=== PATIENT | female | born 1980 | race Caucasian/White ===

== ENCOUNTER 2017-02-21 17:08 | Inpatient (IN) | payer MEDICAID ==
[2017-02-21] MEDS ORDERED: Ondansetron 4 MG/2 ML SDV IVPUSH ONE (17:49)
[2017-02-21] MEDS ORDERED: HYDROmorphone 0.5 MG/0.5 ML Syringe IVPUSH ONE ×4 (17:49→23:18)
--- NOTE | 2017-02-21 17:52 | EDM.PDOC ---
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 Problem Stated Complaint: OVARIAN CYST Time Seen by Provider: 02/21/17 18:50 Source of Information: Reports: Patient History Limitations: Reports: No Limitations Right Pelvic Pain Score (Numeric/FACES): 8 - Related Data Allergies Allergy/AdvReac Type Severity Reaction Status Date / Time codeine Allergy Unknown Hives Verified 02/21/17 17:30 erythromycin base Allergy Unknown Cannot Verified 02/21/17 17:30 [Erythromycin Base] Remember Penicillins Allergy Unknown Cannot Verified 02/21/17 17:30 Remember Sulfa (Sulfonamide Allergy Unknown Blisters Verified 02/21/17 17:30 Antibiotics) Home Meds: Home Meds Acetaminophen [Tylenol Extra Strength] 1,000 mg PO Q6H PRN 03/30/13 [History] Biotin 2,500 mcg PO DAILY 03/30/13 [History] Cholecalciferol (Vitamin D3) [Vitamin D3] 1,000 unit PO BID 03/30/13 [History] Cyanocobalamin (Vitamin B-12) [Vitamin B-12] 1,000 mcg IM Q30M 03/30/13 [History ] Cyanocobalamin (Vitamin B-12) [Vitamin B-12] 2 tab PO DAILY 03/30/13 [History] Ferrous Fumarate [Iron] 325 mg PO TID 03/30/13 [History] Multivitamin [Multivitamins] 2 each PO DAILY 03/30/13 [History] Omeprazole 20 mg PO BIDAC 03/30/13 [History] Vitamin B Complex [Vitamin B-100 Complex] 2 tab PO DAILY 03/30/13 [History] Calcium Carbonate [Calcium] 600 mg PO DAILY 08/23/13 [History] Baclofen 10 mg PO BID PRN 12/01/13 [History] Sucralfate [Carafate] 0.5 gm PO QIDACANDBED #30 dose 09/27/15 [Rx] Ibuprofen 400 mg PO Q4H PRN 12/03/15 [History] Past Medical History Gastrointestinal History: Reports: Bowel Obstruction, Cholelithiasis, GERD Other Gastrointestinal History: chronic abdinal pain 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: Musculoskeletal History: Reports: Back Pain, Chronic Neurological History: Reports: Concussion, Migraines Psychiatric History: Reports: ADD, Anxiety, Depression Hematologic History: Reports: Anemia, B12 Deficiency, Iron Deficiency - Infectious Disease History Infectious Disease History: Reports: Chicken Pox - Past Surgical History HEENT Surgical History: Reports: Tonsillectomy GI Surgical History: Reports: Bariatric Procedure, Cholecystectomy, Colon, EGD, Small Bowel Female Surgical History: Reports: Section, Tubal Ligation Social & Family History - Family History Cardiac: Reports: Heart Failure, High Cholesterol, Hypertension Respiratory: Reports: 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) Other Respiratory Family Hisory: Emphasema Musculoskeletal: Reports: Arthritis Neurological: Reports: Alzheimers Disease Psychiatric: Reports: None Endocrine/Metabolic: Reports: Diabetes, Type I, Obesity/MBI 30+ Oncologic: Reports: Colon, Skin - Tobacco Use Smoking Status *Q: Current Every Day Smoker Years of Tobacco use: 2 Packs/Tins Daily: 1 Tobacco Use Comment: Had quit for 14 years Second Hand Smoke Exposure: Yes - Caffeine Use Caffeine Use: Reports: Coffee, Energy Drinks, Soda, Tea - Alcohol Use Days Per Week of Alcohol Use: 4 Number of Drinks Per Day: 2 Total Drinks Per Week: 8 - Recreational Drug Use Recreational Drug Use: No Course - Vital Signs Last Recorded V/S: Last Vital Signs Temp 37.0 C 02/21/17 23:03 Pulse 56 L 02/21/17 23:03 Resp 16 02/21/17 22:29 BP 115/45 L 02/21/17 23:03 Pulse Ox 97 02/21/17 22:29 - Orders/Labs/Meds Orders: Active Orders 24 hr Category Date Time Status Abdomen Pelvis w Cont [CT] Stat Exams 02/21/17 19:40 Taken Pelvis Non OB Comp [US] Stat Exams 02/21/17 17:50 Taken Transvaginal Non OB [US] Stat Exams 02/21/17 17:50 Taken CHLAMYDIA,AND GC BY APTIMA Routine Lab 02/21/17 19:42 Received Sodium Chloride 0.9% [Normal Saline] 1,000 ml Med 02/21/17 18:00 Active IV ASDIRECTED Sodium Chloride 0.9% [Saline Flush] Med 02/21/17 19:58 Active 10 ml FLUSH ONETIME PRN cefOXitin [Mefoxin] 2 gm Med 02/21/17 23:06 Active Sodium Chloride 0.9% [Normal Saline] 50 ml IV ONETIME Medication Orders Sodium Chloride (Normal Saline) 1,000 mls @ 999 mls/hr IV ASDIRECTED JESS Last Admin: 02/21/17 17:51 Dose: 999 mls/hr Cefoxitin Sodium 2 gm/ Sodium (Chloride) 50 mls @ 100 mls/hr IV ONETIME ONE Stop: 02/21/17 23:35 Sodium Chloride (Saline Flush) 10 ml FLUSH ONETIME PRN PRN Reason: PER RADIOLOGY PROTOCOL Last Admin: 02/21/17 20:44 Dose: 10 ml Labs: Laboratory Tests 02/21/17 02/21/17 02/21/17 Range/Units 17:58 17:58 17:58 WBC 12.1 H (4.5-11.0) K/uL RBC 3.87 (3.30-5.50) M/uL Hgb 11.5 L D (12.0-15.0) g/dL Hct 34.0 L (36.0-48.0) % MCV 88 (80-98) fL MCH 30 (27-31) pg MCHC 34 (32-36) % Plt Count 350 (150-400) K/uL Neut % (Auto) 79 H (36-66) % Lymph % (Auto) 10 L (24-44) % [place] % (Auto) 11 H (2-6) % Eos % (Auto) 1 L (2-4) % Baso % (Auto) 0 (0-1) % Sodium 136 L (140-148) mmol/L Potassium 4.0 (3.6-5.2) mmol/L Chloride 102 (100-108) mmol/L Carbon Dioxide 27 (21-32) mmol/L Anion Gap 11.0 (5.0-14.0) mmol/L BUN 14 (7-18) mg/dL Creatinine 0.9 (0.6-1.0) mg/dL Est Cr Clr Drug Dosing 64.58 mL/min Estimated GFR (MDRD) > 60 (>60) Glucose 88 (74-106) mg/dL Calcium 8.4 L (8.5-10.1) mg/dL Total Bilirubin 0.3 D (0.2-1.0) mg/dL AST 15 (15-37) U/L ALT 22 (12-78) U/L Alkaline Phosphatase 72 (46-116) U/L C-Reactive Protein 18.89 H (0.0-0.3) mg/dL Total Protein 6.5 (6.4-8.2) g/dL Albumin 2.8 L (3.4-5.0) g/dL Globulin 3.7 H (2.3-3.5) g/dL Albumin/Globulin Ratio 0.8 L (1.2-2.2) Urine Color Urine Appearance Urine pH (4.5-8.0) Ur Specific [place] (1.008-1.030) Urine Protein (NEGATIVE) mg/dL Urine Glucose (UA) (NEGATIVE) mg/dL Urine Ketones (NEGATIVE) mg/dL Urine Occult Blood (NEGATIVE) Urine Nitrite (NEGATIVE) Urine Bilirubin (NEGATIVE) Urine Urobilinogen (NORMAL) mg/dL Ur Leukocyte Esterase (NEGATIVE) Urine RBC (0-5) Urine WBC (0-5) Ur Epithelial Cells Amorphous Sediment Urine Bacteria Urine Mucus Urine Other Urine HCG, Qual 02/21/17 02/21/17 Range/Units 19:25 19:25 WBC (4.5-11.0) K/uL RBC (3.30-5.50) M/uL Hgb (12.0-15.0) g/dL Hct (36.0-48.0) % MCV (80-98) fL MCH (27-31) pg MCHC (32-36) % Plt Count (150-400) K/uL Neut % (Auto) (36-66) % Lymph % (Auto) (24-44) % [place] % (Auto) (2-6) % Eos % (Auto) (2-4) % Baso % (Auto) (0-1) % Sodium (140-148) mmol/L Potassium (3.6-5.2) mmol/L Chloride (100-108) mmol/L Carbon Dioxide (21-32) mmol/L Anion Gap (5.0-14.0) mmol/L BUN (7-18) mg/dL Creatinine (0.6-1.0) mg/dL Est Cr Clr Drug Dosing mL/min Estimated GFR (MDRD) (>60) Glucose (74-106) mg/dL Calcium (8.5-10.1) mg/dL Total Bilirubin (0.2-1.0) mg/dL AST (15-37) U/L ALT (12-78) U/L Alkaline Phosphatase (46-116) U/L C-Reactive Protein (0.0-0.3) mg/dL Total Protein (6.4-8.2) g/dL Albumin (3.4-5.0) g/dL Globulin (2.3-3.5) g/dL Albumin/Globulin Ratio (1.2-2.2) Urine Color Yellow Urine Appearance Clear Urine pH 6.0 (4.5-8.0) Ur Specific [place] 1.025 (1.008-1.030) Urine Protein Negative (NEGATIVE) mg/dL Urine Glucose (UA) Normal (NEGATIVE) mg/dL Urine Ketones 15 H (NEGATIVE) mg/dL Urine Occult Blood Moderate (NEGATIVE) Urine Nitrite Negative (NEGATIVE) Urine Bilirubin Small (NEGATIVE) Urine Urobilinogen 8 (NORMAL) mg/dL Ur Leukocyte Esterase Negative (NEGATIVE) Urine RBC 5-10 H (0-5) Urine WBC 0-5 (0-5) Ur Epithelial Cells Moderate Amorphous Sediment Not seen Urine Bacteria Few Urine Mucus Numerous Urine Other Urine HCG, Qual Negative Meds: Medications Generic Name Dose Route Start Last Admin Trade Name Freq PRN Reason Stop Dose Admin Sodium Chloride 1,000 mls @ 999 mls/hr 02/21/17 18:00 02/21/17 17:51 Normal Saline IV 999 mls/hr ASDIRECTED JESS Administration Cefoxitin Sodium 2 gm/ Sodium 50 mls @ 100 mls/hr 02/21/17 23:06 Chloride IV 02/21/17 23:35 ONETIME ONE Sodium Chloride 10 ml 02/21/17 19:58 02/21/17 20:44 Saline Flush FLUSH 10 ml ONETIME PRN Administration PER RADIOLOGY PROTOCOL Discontinued Medications Generic Name Dose Route Start Last Admin Trade Name Freq PRN Reason Stop Dose Admin Doxycycline Hyclate 100 mg 02/21/17 23:06 Vibramycin PO 02/21/17 23:07 ONETIME ONE Hydromorphone HCl 0.5 mg 02/21/17 17:49 02/21/17 18:00 Dilaudid IVPUSH 02/21/17 17:50 0.5 mg ONETIME ONE Administration Hydromorphone HCl 0.5 mg 02/21/17 18:48 02/21/17 18:59 Dilaudid IVPUSH 02/21/17 18:49 0.5 mg ONETIME ONE Administration Hydromorphone HCl 0.5 mg 02/21/17 20:14 02/21/17 20:33 Dilaudid IVPUSH 02/21/17 20:15 0.5 mg ONETIME ONE Administration Sodium Chloride 70 mls @ 3 mls/sec 02/21/17 19:58 02/21/17 20:44 Normal Saline IV 02/21/17 19:59 3 mls/sec ONETIME ONE Administration Iopamidol 82 ml 02/21/17 19:58 02/21/17 20:44 Isovue-300 (61%) IV 100 ml . DIRECTED PRN Administration RADIOLOGY EXAM Lorazepam 0.5 mg 02/21/17 18:48 02/21/17 19:02 Ativan IVPUSH 02/21/17 18:49 0.5 mg ONETIME ONE Administration Ondansetron HCl 4 mg 02/21/17 17:49 02/21/17 17:58 Zofran IVPUSH 02/21/17 17:50 4 mg ONETIME ONE Administration Departure - Departure Disposition: Admitted As Inpatient 66 Clinical Impression: Parovarian cyst, Cervicitis - Discharge Information Referrals: Maikol Way MD [Primary Care Provider] - - My Orders Last 24 Hours: My Active Orders 02/21/17 19:40 Abdomen Pelvis w Cont [CT] Stat 02/21/17 19:42 CHLAMYDIA,AND GC BY APTIMA Routine 02/21/17 19:58 Sodium Chloride 0.9% [Saline Flush] 10 ml FLUSH ONETIME PRN 02/21/17 23:06 cefOXitin [Mefoxin] 2 gm Sodium Chloride 0.9% [Normal Saline] 50 ml IV ONETIME - Assessment/Plan Last 24 Hours: My Active Orders 02/21/17 19:40 Abdomen Pelvis w Cont [CT] Stat 02/21/17 19:42 CHLAMYDIA,AND GC BY APTIMA Routine 02/21/17 19:58 Sodium Chloride 0.9% [Saline Flush] 10 ml FLUSH ONETIME PRN 02/21/17 23:06 cefOXitin [Mefoxin] 2 gm Sodium Chloride 0.9% [Normal Saline] 50 ml IV ONETIME <Jayden Tomas - Last Filed: 02/21/17 23:18> ED HPI GENERAL MEDICAL PROBLEM - General Source of Information: Reports: Patient, RN Notes Reviewed History Limitations: Reports: No Limitations - History of Present Illness INITIAL COMMENTS - FREE TEXT/NARRATIVE: Initially briefly assessed and orders written by Dr. Lo then transferred to my care 18.50 Brought here by a friend Chief complaint Right lower quadrant abdominal pain History of present illness 37-year-old female, with history of ovarian cysts and tubal ligation, started developing some cramping pain right lower quadrant a few weeks ago. It was intermittent but suddenly became worse 2 days ago kept her awake last night was quite severe. Nausea but no vomiting Worse with movement and walking very sharp and steady Seen the clinic and transferred here because of her intense pain. Very restless on arrival so she was given pain medication. Ultrasound has been completed dentist shows some free fluid in the uterus in the pelvis, small amount, no cysts and no swelling of the adnexa or ovaries, no visualized cysts. Last menstrual period was 2-1/2 weeks ago just before the pain started 1 sexual partner, has been with him for a year ED ROS GENERAL - Review of Systems Review Of Systems: See Below Constitutional: Reports: Decreased Appetite, Weight Loss. Denies: Fever, Chills HEENT: Reports: No Symptoms Respiratory: Reports: No Symptoms Cardiovascular: Reports: No Symptoms GI/Abdominal: Reports: Abdominal Pain, Decreased Appetite, Nausea, Other ( Decreased intake, bowel movements less frequent). Denies: Constipation, Diarrhea, Vomiting : Reports: Discharge, Pain, Other (Urine darker and cloudy). Denies: Dysuria Musculoskeletal: Reports: No Symptoms Skin: Reports: No Symptoms Neurological: Reports: No Symptoms ED EXAM, GI/ABD - Physical Exam Exam: See Below Exam Limited By: No Limitations General Appearance: Alert, Anxious, Moderate Distress, Other (Restless and uncomfortable, her pain medication hydromorphone was given about an hour ago, low-grade fever but other vital signs normal) Eyes: Bilateral: Normal Appearance, EOMI Ears: Normal External Exam Nose: Normal Inspection Throat/Mouth: Normal Inspection Neck: Normal Inspection Respiratory/Chest: No Respiratory Distress, No Accessory Muscle Use Cardiovascular: Normal Peripheral Pulses, Regular Rate, Rhythm GI/Abdominal Exam: Normal Bowel Sounds, Soft. No: Tender (Exquisitely tender right lower quadrant, unable to assess for guarding) (Female) Exam: Normal External Exam, Adnexal Tenderness (Right side), Cervical Discharge (Yellow-brown). No: Vaginal Bleeding Extremities: Normal Inspection, Normal Capillary Refill Neurological: Alert, No Motor/Sensory Deficits Psychiatric: Anxious Skin Exam: Warm, Dry, Intact, Normal Color, No Rash Lymphatic: No Adenopathy Course - Re-Assessments/Exams Free Text/Narrative Re-Assessment/Exam: 02/21/17 18:55 37-year-old female with acute right lower quadrant abdominal pain Ultrasound negative for cyst but positive for small amount of intrapelvic intrauterine fluid Mild elevation white count 12.1 Elevated CRP Additional hydromorphone 0.5 mg and lorazepam 0.5 mg IV for comfort, and in order to do pelvic exam 02/21/17 23:07 Pelvic ultrasound shows a small amount of free fluid no definite ovarian cyst, there is a hypolucent area on the uterine wall and MRI is recommended urinalysis negative HCG negative Wet prep shows 1+ clue cells and bacteria, suggestive of nonspecific vaginitis Swab for chlamydia and GC pending In view of her significant pain on examination her elevated white count and the signs of infection, CT of the abdomen and pelvis with IV contrast on This shows a multiloculated fluid collection in the right side of the pelvis, separate from the ovary and not attached to the colon. The appendix is normal. It may be a parovarian cyst or possibly a tubal infection, no comments about being an abscess but there is fat stranding suggesting inflammation. Discussed with on-call physician We'll start antibiotics for possible PID MRI tomorrow or referral to surgery for gynecology 02/21/17 23:17 Departure - Departure Time of Disposition: 23:10 Condition: Good
[2017-02-21] MEDS ORDERED: Sodium Chloride 0.9% 1,000 ML IV SCH (18:00)
[2017-02-21] MEDS: LORazepam 2 MG/ML MDV IVPUSH ONE (19:02)
[2017-02-21] MEDS ORDERED: Sodium Chloride 0.9% 10 ML Syringe FLUSH PRN (19:58)
[2017-02-21] MEDS ORDERED: Iopamidol 612 MG/ML 100 ML Bottle IV PRN (19:58)
[2017-02-21] MEDS ORDERED: Doxycycline 100 MG Cap PO ONE (23:06)
[2017-02-21] MEDS ORDERED: cefOXitin 2 GM in Sodium Chloride 0.9% 50 ML IV ONE (23:06)
--- NOTE | 2017-02-22 00:24 | PCM.HP ---
H&P History of Present Illness - General Date of Service: 02/22/17 Admit Problem/Dx: Admission Diagnosis/Problem Admission Diagnosis/Problem Abdominal pain Source of Information: Patient, Provider, RN Notes Reviewed History Limitations: Reports: No Limitations - History of Present Illness Initial Comments - Free Text/Narative: Ms. Dickson is a 37-year-old woman who is admitted through the emergency department with a two-week history of right lower quadrant abdominal pain. Pain initially occurred intermittently and was described as a mild to moderate ache. Become worse with activity and better with rest. During the past 2 weeks pain is become more intense and persistent. She presented to the emergency department today for further evaluation. She has marked elevation in CRP and modest elevation in white blood cell count. Vital signs have been stable but she 's had a mild elevation in temperature. Over the past few days has noted associated nausea, pain with eating, weakness, decreased appetite and weight loss. Ultrasound of the pelvis was obtained and showed evidence of a cystic lesion in the right pelvis, not associated with the ovary. CT scan again shows cystic lesion with evidence of inflammation and stranding. Right Pelvic Pain Score (Numeric/FACES): 5 - Related Data Allergies/Adverse Reactions: Allergies Allergy/AdvReac Type Severity Reaction Status Date / Time codeine Allergy Unknown Hives Verified 02/21/17 17:30 erythromycin base Allergy Unknown Cannot Verified 02/21/17 17:30 [Erythromycin Base] Remember Penicillins Allergy Unknown Cannot Verified 02/21/17 17:30 Remember Sulfa (Sulfonamide Allergy Unknown Blisters Verified 02/21/17 17:30 Antibiotics) Home Medications: Home Meds Acetaminophen [Tylenol Extra Strength] 1,000 mg PO Q6H PRN 03/30/13 [History] Biotin 2,500 mcg PO DAILY 03/30/13 [History] Cholecalciferol (Vitamin D3) [Vitamin D3] 1,000 unit PO BID 03/30/13 [History] Cyanocobalamin (Vitamin B-12) [Vitamin B-12] 1,000 mcg IM Q30M 03/30/13 [History ] Cyanocobalamin (Vitamin B-12) [Vitamin B-12] 2 tab PO DAILY 03/30/13 [History] Ferrous Fumarate [Iron] 325 mg PO TID 03/30/13 [History] Multivitamin [Multivitamins] 2 each PO DAILY 03/30/13 [History] Omeprazole 20 mg PO BIDAC 03/30/13 [History] Vitamin B Complex [Vitamin B-100 Complex] 2 tab PO DAILY 03/30/13 [History] Calcium Carbonate [Calcium] 600 mg PO DAILY 08/23/13 [History] Baclofen 10 mg PO BID PRN 12/01/13 [History] Sucralfate [Carafate] 0.5 gm PO QIDACANDBED #30 dose 09/27/15 [Rx] Ibuprofen 400 mg PO Q4H PRN 12/03/15 [History] Past Medical History Gastrointestinal History: Reports: Bowel Obstruction, Cholelithiasis, GERD Other Gastrointestinal History: chronic abdinal pain 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: Musculoskeletal History: Reports: Back Pain, Chronic Neurological History: Reports: Concussion, Migraines Psychiatric History: Reports: ADD, Anxiety, Depression Hematologic History: Reports: Anemia, B12 Deficiency, Iron Deficiency - Infectious Disease History Infectious Disease History: Reports: Chicken Pox - Past Surgical History HEENT Surgical History: Reports: Tonsillectomy GI Surgical History: Reports: Bariatric Procedure, Cholecystectomy, Colon, EGD, Small Bowel Female Surgical History: Reports: Section, Tubal Ligation Social & Family History - Family History Cardiac: Reports: Heart Failure, High Cholesterol, Hypertension Respiratory: Reports: 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) Other Respiratory Family Hisory: Emphasema Musculoskeletal: Reports: Arthritis Neurological: Reports: Alzheimers Disease Psychiatric: Reports: None Endocrine/Metabolic: Reports: Diabetes, Type I, Obesity/MBI 30+ Oncologic: Reports: Colon, Skin - Tobacco Use Smoking Status *Q: Current Every Day Smoker Years of Tobacco use: 2 Packs/Tins Daily: 1 Tobacco Use Comment: Had quit for 14 years Second Hand Smoke Exposure: Yes - Caffeine Use Caffeine Use: Reports: Coffee, Energy Drinks, Soda, Tea - Alcohol Use Days Per Week of Alcohol Use: 4 Number of Drinks Per Day: 2 Total Drinks Per Week: 8 - Recreational Drug Use Recreational Drug Use: No H&P Review of Systems - Review of Systems: Review Of Systems: See Below General: Reports: Fever, Chills, Weakness, Decreased Appetite, Weight Loss HEENT: Reports: No Symptoms Pulmonary: Reports: No Symptoms Cardiovascular: Reports: No Symptoms Gastrointestinal: Reports: Abdominal Pain, Decreased Appetite, Nausea. Denies: Black Stool, Bloody Stool, Constipation, Diarrhea, Difficulty Swallowing, Distension, Vomiting Genitourinary: Reports: Discharge. Denies: Dysuria, Frequency, Burning, Urgency , Incontinence, Abnormal Menses Musculoskeletal: Reports: No Symptoms Skin: Reports: No Symptoms Psychiatric: Reports: No Symptoms Neurological: Reports: No Symptoms Hematologic/Lymphatic: Reports: No Symptoms Immunologic: Reports: No Symptoms Exam - Exam Exam: See Below - Vital Signs Vital Signs: Last Vital Signs Temp 98.6 F 02/21/17 23:03 Pulse 56 L 02/21/17 23:03 Resp 16 02/21/17 22:29 BP 115/45 L 02/21/17 23:03 Pulse Ox 97 02/21/17 22:29 Weight: 122 lb 9.232 oz - Exam General: Alert, Oriented, Cooperative, Moderate Distress, Sedated HEENT: Conjunctiva Clear, Mucosa Moist & [place], Normal Nasal Septum, Posterior Pharynx Clear, Pupils Equal Neck: Supple, Trachea Midline, +2 Carotid Pulse wo Bruit Lungs: Clear to Auscultation, Normal Respiratory Effort Cardiovascular: Regular Rate, Regular Rhythm, Normal S1, Normal S2. No: Systolic Murmur, Diastolic Murmur GI/Abdominal Exam: Normal Bowel Sounds, Soft, No Organomegaly, Tender. No: Distended, Guarding, Rigid, Rebound Back Exam: Normal Inspection, Full Range of Motion Extremities: Non-Tender, No Pedal Edema Skin: Warm, Dry Neurological: Cranial Nerves Intact, Strength Equal Bilateral, Normal Speech, Normal Tone, Sensation Intact. No: Focal Deficit Neuro Extensive - Mental Status: Alert, Oriented x3, Normal Mood/Affect, Normal Cognition, Memory Intact - Patient Data Lab Results Last 24 hrs: Laboratory Results - last 24 hr 02/21/17 02/21/17 02/21/17 Range/Units 17:58 17:58 17:58 WBC 12.1 H (4.5-11.0) K/uL RBC 3.87 (3.30-5.50) M/uL Hgb 11.5 L D (12.0-15.0) g/dL Hct 34.0 L (36.0-48.0) % MCV 88 (80-98) fL MCH 30 (27-31) pg MCHC 34 (32-36) % Plt Count 350 (150-400) K/uL Neut % (Auto) 79 H (36-66) % Lymph % (Auto) 10 L (24-44) % [place] % (Auto) 11 H (2-6) % Eos % (Auto) 1 L (2-4) % Baso % (Auto) 0 (0-1) % Sodium 136 L (140-148) mmol/L Potassium 4.0 (3.6-5.2) mmol/L Chloride 102 (100-108) mmol/L Carbon Dioxide 27 (21-32) mmol/L Anion Gap 11.0 (5.0-14.0) mmol/L BUN 14 (7-18) mg/dL Creatinine 0.9 (0.6-1.0) mg/dL Est Cr Clr Drug Dosing 64.58 mL/min Estimated GFR (MDRD) > 60 (>60) Glucose 88 (74-106) mg/dL Calcium 8.4 L (8.5-10.1) mg/dL Total Bilirubin 0.3 D (0.2-1.0) mg/dL AST 15 (15-37) U/L ALT 22 (12-78) U/L Alkaline Phosphatase 72 (46-116) U/L C-Reactive Protein 18.89 H (0.0-0.3) mg/dL Total Protein 6.5 (6.4-8.2) g/dL Albumin 2.8 L (3.4-5.0) g/dL Globulin 3.7 H (2.3-3.5) g/dL Albumin/Globulin Ratio 0.8 L (1.2-2.2) Urine Color Urine Appearance Urine pH (4.5-8.0) Ur Specific [place] (1.008-1.030) Urine Protein (NEGATIVE) mg/dL Urine Glucose (UA) (NEGATIVE) mg/dL Urine Ketones (NEGATIVE) mg/dL Urine Occult Blood (NEGATIVE) Urine Nitrite (NEGATIVE) Urine Bilirubin (NEGATIVE) Urine Urobilinogen (NORMAL) mg/dL Ur Leukocyte Esterase (NEGATIVE) Urine RBC (0-5) Urine WBC (0-5) Ur Epithelial Cells Amorphous Sediment Urine Bacteria Urine Mucus Urine Other Urine HCG, Qual 02/21/17 02/21/17 Range/Units 19:25 19:25 WBC (4.5-11.0) K/uL RBC (3.30-5.50) M/uL Hgb (12.0-15.0) g/dL Hct (36.0-48.0) % MCV (80-98) fL MCH (27-31) pg MCHC (32-36) % Plt Count (150-400) K/uL Neut % (Auto) (36-66) % Lymph % (Auto) (24-44) % [place] % (Auto) (2-6) % Eos % (Auto) (2-4) % Baso % (Auto) (0-1) % Sodium (140-148) mmol/L Potassium (3.6-5.2) mmol/L Chloride (100-108) mmol/L Carbon Dioxide (21-32) mmol/L Anion Gap (5.0-14.0) mmol/L BUN (7-18) mg/dL Creatinine (0.6-1.0) mg/dL Est Cr Clr Drug Dosing mL/min Estimated GFR (MDRD) (>60) Glucose (74-106) mg/dL Calcium (8.5-10.1) mg/dL Total Bilirubin (0.2-1.0) mg/dL AST (15-37) U/L ALT (12-78) U/L Alkaline Phosphatase (46-116) U/L C-Reactive Protein (0.0-0.3) mg/dL Total Protein (6.4-8.2) g/dL Albumin (3.4-5.0) g/dL Globulin (2.3-3.5) g/dL Albumin/Globulin Ratio (1.2-2.2) Urine Color Yellow Urine Appearance Clear Urine pH 6.0 (4.5-8.0) Ur Specific [place] 1.025 (1.008-1.030) Urine Protein Negative (NEGATIVE) mg/dL Urine Glucose (UA) Normal (NEGATIVE) mg/dL Urine Ketones 15 H (NEGATIVE) mg/dL Urine Occult Blood Moderate (NEGATIVE) Urine Nitrite Negative (NEGATIVE) Urine Bilirubin Small (NEGATIVE) Urine Urobilinogen 8 (NORMAL) mg/dL Ur Leukocyte Esterase Negative (NEGATIVE) Urine RBC 5-10 H (0-5) Urine WBC 0-5 (0-5) Ur Epithelial Cells Moderate Amorphous Sediment Not seen Urine Bacteria Few Urine Mucus Numerous Urine Other Urine HCG, Qual Negative Result Diagrams: 02/21/17 17:58 02/21/17 17:58 [place] Results Last 24 hrs: Microbiology 02/21/17 19:15 Wet Prep - Final Vagina *Q Meaningful Use (ADM) - VTE *Q VTE Criteria *Q: - VTE Risk Assess *Q Each Risk Factor Represents 1 Point: None Total Score 1 Point Risk Factors: 0 Each Risk Factor Represents 2 Points: None Total Score 2 Point Risk Factors: 0 Each Risk Factor Represents 3 Points: None Total Score 3 Point Risk Factors: 0 Each Risk Factor Represents 5 Points: None Total Score 5 Point Risk Factors: 0 Venous Thromboembolism Risk Factor Score *Q: 0 - Stroke *Q Stroke Criteria *Q: - AMI *Q AMI Criteria *Q: Problem List Initiated/Reviewed/Updated: Yes Orders Last 24hrs: Active Orders 24 hr Category Date Time Status Patient Status Manage Transfer [TRANSFER] Routine ADT 02/22/17 00:00 Active Abdomen Pelvis w Cont [CT] Stat Exams 02/21/17 19:40 Taken Pelvis Non OB Comp [US] Stat Exams 02/21/17 17:50 Taken Transvaginal Non OB [US] Stat Exams 02/21/17 17:50 Taken CHLAMYDIA,AND GC BY APTIMA Routine Lab 02/21/17 19:42 Received Sodium Chloride 0.9% [Normal Saline] 1,000 ml Med 02/21/17 18:00 Active IV ASDIRECTED Sodium Chloride 0.9% [Saline Flush] Med 02/21/17 19:58 Active 10 ml FLUSH ONETIME PRN Resuscitation Status Routine Resus Stat 02/22/17 00:03 Ordered Medication Orders Sodium Chloride (Normal Saline) 1,000 mls @ 999 mls/hr IV ASDIRECTED [facility] Last Admin: 02/21/17 17:51 Dose: 999 mls/hr Sodium Chloride (Saline Flush) 10 ml FLUSH ONETIME PRN PRN Reason: PER RADIOLOGY PROTOCOL Last Admin: 02/21/17 20:44 Dose: 10 ml Assessment/Plan Comment:: ASSESSMENT AND PLAN RIGHT PELVIC INFECTION-associated with cystic lesion in the right pelvis. Two- week history of progressive pain, now very intense. Marked elevation in CRP, mild elevation in WBCs. -MRI in a.m. to further evaluate uterine abnormality identified on ultrasound as well as cystic lesion in the right pelvis. -IV fluids for hydration -Dilaudid ENTERPRISE BUSINESS ARCHITECT for pain -Anti-emetic therapy as needed -Nothing by mouth -Consult Dr. Paez in a.m. for surgical opinion -Cefoxitin 2 g IV every 6 hours MAINTENANCE ISSUES -DVT prophylaxis; SCUDs -GI prophylaxis; continue outpatient PPI therapy -Kim catheter; not indicated -Nutrition; nothing by mouth -Nicotine dependence; 21 mg patch CODE STATUS-FULL CODE ADMISSION STATUS-patient will be admitted to inpatient status, expect at least a 2 night hospital stay for evaluation and management of problems as outlined above. At the time of this admission I do not reasonably expected evaluation and management of this problem will require more than a 96 hour hospital stay. DISPOSITION-anticipate discharge to home after the hospital stay. PRIMARY CARE PROVIDER-Dr. Way
[2017-02-22] MEDS ORDERED: Naloxone 0.4 MG/ML SDV IVPUSH PRN (00:51)
[2017-02-22] MEDS ORDERED: Sodium Chloride 0.9% 10 ML Syringe FLUSH PRN (00:51)
[2017-02-22] MEDS: Nicotine 21 MG/24 Hr Patch TRDERM SCH ×3 (01:30→17:48)
[2017-02-22] MEDS: LORazepam 2 MG/ML MDV IVPUSH ONE (01:30)
[2017-02-22] MEDS: cefOXitin 2 GM in Sodium Chloride 0.9% 50 ML IV SCH ×5 (01:31→23:39)
[2017-02-22] MEDS: HYDROmorphone/Normal Saline 15 MG/30 ML PCA IV PRN (01:32)
[2017-02-22] MEDS: Sodium Chloride 0.9% 1,000 ML IV SCH ×3 (08:30→23:55)
[2017-02-22] MEDS: Sucralfate Suspension 1 GM/10 ML Cup PO SCH ×4 (09:01→19:35)
[2017-02-22] MEDS: Pantoprazole 40 MG Tab.CR PO SCH ×2 (09:01→15:53)
[2017-02-22] MEDS ORDERED: FLU Vacc QS 2017-18 (36mos UP)/PF 60 MCG/0.5 ML Syringe IM ONE (10:00)
[2017-02-22] MEDS ORDERED: Bupivacaine 0.5%/EPINEPHrine 1:200,000 50 ML MDV ONE (11:10)
[2017-02-22] MEDS ORDERED: Neostigmine Methylsulfate 1 MG/ML 5 ML Syringe ONE (12:05)
[2017-02-22] MEDS ORDERED: Glycopyrrolate 0.2 MG/ML 5 ML MDV ONE (12:05)
[2017-02-22] MEDS ORDERED: Rocuronium 50 MG/5 ML Vial ONE (12:05)
[2017-02-22] MEDS ORDERED: Propofol 200 MG/20 ML SDV ONE (12:05)
[2017-02-22] MEDS ORDERED: Dexamethasone 4 MG/ML SDV ONE (12:05)
[2017-02-22] MEDS ORDERED: Ondansetron 4 MG/2 ML SDV ONE (12:05)
[2017-02-22] MEDS ORDERED: Lactated Ringers 1,000 ML ONE (12:44)
[2017-02-22] MEDS ORDERED: Sodium Chloride 0.9% 1,000 ML IV SCH (14:00)
[2017-02-22] MEDS: metroNIDAZOLE/Normal Saline 500 MG in Premix Bag 1 BAG IV SCH ×2 (15:49→21:50)
[2017-02-22] MEDS: Sodium Chloride 0.9% 250 ML IV SCH ×2 (19:35→23:54)
[2017-02-23] MEDS: Ondansetron 4 MG/2 ML SDV IV PRN (01:14)
[2017-02-23] MEDS ORDERED: diphenhydrAMINE 50 MG/ML SDV IVPUSH PRN (01:19)
[2017-02-23] MEDS: HYDROmorphone/Normal Saline 15 MG/30 ML PCA IV PRN (04:10)
[2017-02-23] MEDS: cefOXitin 2 GM in Sodium Chloride 0.9% 50 ML IV SCH ×4 (05:15→23:36)
[2017-02-23] MEDS: metroNIDAZOLE/Normal Saline 500 MG in Premix Bag 1 BAG IV SCH ×3 (05:17→21:13)
[2017-02-23] MEDS: Sucralfate Suspension 1 GM/10 ML Cup PO SCH ×4 (08:02→19:36)
[2017-02-23] MEDS: Pantoprazole 40 MG Tab.CR PO SCH ×2 (08:02→17:28)
[2017-02-23] MEDS: Nicotine 21 MG/24 Hr Patch TRDERM SCH (09:00)
[2017-02-23] MEDS: Sodium Chloride 0.9% 1,000 ML IV SCH ×2 (09:35→19:35)
[2017-02-23] MEDS ORDERED: Nicotine 21 MG/24 Hr Patch TRDERM SCH (09:37)
[2017-02-23] MEDS: Sodium Chloride 0.9% 250 ML IV SCH (10:11)
[2017-02-23] MEDS ORDERED: FLU Vacc QS 2017-18 (36mos UP)/PF 60 MCG/0.5 ML Syringe IM ONE (11:00)
[2017-02-23] MEDS: Nicotine 14 MG/24 Hr Patch TRDERM SCH (12:33)
[2017-02-23] MEDS ORDERED: Sodium Chloride 0.9% 250 ML IV SCH (15:30)
[2017-02-23] MEDS ORDERED: Sodium Chloride 0.9% 250 ML IV PRN (16:00)
[2017-02-24] MEDS: Sodium Chloride 0.9% 1,000 ML IV SCH (05:05)
[2017-02-24] MEDS: cefOXitin 2 GM in Sodium Chloride 0.9% 50 ML IV SCH ×4 (05:05→23:59)
[2017-02-24] MEDS: metroNIDAZOLE/Normal Saline 500 MG in Premix Bag 1 BAG IV SCH ×3 (05:53→22:42)
[2017-02-24] MEDS: Pantoprazole 40 MG Tab.CR PO SCH ×2 (08:03→16:27)
[2017-02-24] MEDS: Sucralfate Suspension 1 GM/10 ML Cup PO SCH ×4 (08:03→22:42)
[2017-02-24] MEDS: Nicotine 14 MG/24 Hr Patch TRDERM SCH ×2 (10:28→22:50)
[2017-02-24] MEDS: Ondansetron 4 MG/2 ML SDV IV PRN (10:43)
[2017-02-24] MEDS ORDERED: Ibuprofen 600 MG Tab PO PRN (11:59)
[2017-02-24] MEDS ORDERED: fentaNYL 100 MCG/2 ML SDV IVPUSH PRN (11:59)
[2017-02-24] MEDS: Acetaminophen/HYDROcodone 325-5 MG Tab PO PRN ×3 (12:45→22:41)
[2017-02-24] MEDS: Docusate Sodium 100 MG Cap PO PRN (13:32)
[2017-02-24] MEDS: Magnesium Hydroxide 400 MG/5 ML Susp 30 ML Cup PO PRN (13:32)
--- NOTE | 2017-02-24 13:37 | PN ---
DATE OF SERVICE: 02/24/2017 SUBJECTIVE: The patient is doing better. Pain is improved. No nausea, vomiting, shortness of breath, or chest pain. OBJECTIVE: VITAL SIGNS: Stable. She is 98.7, blood pressure 121/80, pulse 84, respirations 16, and 98% on room air. CARDIOVASCULAR: Regular rhythm and rate. RESPIRATORY: Lungs clear to consultation bilaterally. ABDOMEN: Bowel sounds positive. Incision is healing well. ASSESSMENT: Status post abscess drainage. 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 pain medications. Porter Paez MD /[id number]
[2017-02-25] MEDS: Sodium Chloride 0.9% 1,000 ML IV SCH (01:23)
[2017-02-25] MEDS: Acetaminophen/HYDROcodone 325-5 MG Tab PO PRN ×5 (02:31→20:52)
[2017-02-25] MEDS: Ondansetron 4 MG/2 ML SDV IV PRN ×3 (02:33→16:46)
[2017-02-25] MEDS: cefOXitin 2 GM in Sodium Chloride 0.9% 50 ML IV SCH ×4 (05:23→23:13)
[2017-02-25] MEDS: metroNIDAZOLE/Normal Saline 500 MG in Premix Bag 1 BAG IV SCH ×3 (06:03→21:00)
[2017-02-25] MEDS: Sucralfate Suspension 1 GM/10 ML Cup PO SCH ×4 (08:06→19:41)
[2017-02-25] MEDS: Pantoprazole 40 MG Tab.CR PO SCH ×2 (08:49→15:48)
--- NOTE | 2017-02-25 10:37 | PN ---
DATE OF SERVICE: 02/25/2017 SUBJECTIVE: The patient is doing well. Pain is slowly improving. No nausea, vomiting, shortness of breath, or chest pain. OBJECTIVE: VITAL SIGNS: Stable. CARDIOVASCULAR: Regular rhythm and rate. ABDOMEN: Wound VAC is intact. Her incision is healing well. ASSESSMENT AND PLAN: Continue antibiotics. Increase diet and activity. We will also ask discharge planning see the patient in anticipation of discharge next 48 to 72 hours. Porter Paez MD /[id number]
[2017-02-25] MEDS ORDERED: LORazepam 1 MG Tab PO PRN (11:40)
[2017-02-25] MEDS: Nicotine 14 MG/24 Hr Patch TRDERM SCH (12:29)
[2017-02-25] MEDS: Ferrous Sulfate 325 MG Tab PO SCH ×2 (12:29→16:43)
[2017-02-25] MEDS: Magnesium Hydroxide 400 MG/5 ML Susp 30 ML Cup PO PRN (13:50)
[2017-02-25] MEDS: Docusate Sodium 100 MG Cap PO PRN (13:50)
[2017-02-25] MEDS: Citalopram 20 MG Tab PO SCH (13:51)
[2017-02-25] MEDS: Vitamin B Complex Tab PO SCH (13:51)
[2017-02-25] MEDS: Baclofen 10 MG Tab PO SCH ×2 (13:51→20:07)
[2017-02-25] MEDS ORDERED: Cyanocobalamin (Vitamin B12) 1,000 MCG/ML SDV IM ONE (14:00)
[2017-02-25] MEDS ORDERED: Potassium Chloride 20 MEQ Tab.ER PO ONE ×2 (15:30→21:00)
[2017-02-25] MEDS ORDERED: traZODone 50 MG Tab PO SCH (21:00)
[2017-02-26] MEDS: Acetaminophen/HYDROcodone 325-5 MG Tab PO PRN ×5 (00:52→21:17)
[2017-02-26] MEDS: Ondansetron 4 MG/2 ML SDV IV PRN ×4 (05:01→21:16)
[2017-02-26] MEDS: cefOXitin 2 GM in Sodium Chloride 0.9% 50 ML IV SCH ×3 (05:06→17:58)
[2017-02-26] MEDS: Sucralfate Suspension 1 GM/10 ML Cup PO SCH ×4 (06:11→21:26)
[2017-02-26] MEDS: metroNIDAZOLE/Normal Saline 500 MG in Premix Bag 1 BAG IV SCH ×3 (06:11→21:27)
[2017-02-26] MEDS: Pantoprazole 40 MG Tab.CR PO SCH ×2 (07:55→17:50)
[2017-02-26] MEDS: Citalopram 20 MG Tab PO SCH (08:41)
[2017-02-26] MEDS: Ferrous Sulfate 325 MG Tab PO SCH ×3 (08:42→17:51)
[2017-02-26] MEDS: Vitamin B Complex Tab PO SCH (08:42)
[2017-02-26] MEDS: Baclofen 10 MG Tab PO SCH ×3 (08:42→21:26)
--- NOTE | 2017-02-26 09:16 | PN ---
DATE OF SERVICE: 02/26/2017 SUBJECTIVE: The patient continues to improve. Pain is controlled. No nausea, vomiting, shortness of breath, or chest pain. OBJECTIVE: VITAL SIGNS: Stable. She is afebrile. CARDIOVASCULAR: Regular rhythm and rate. RESPIRATORY: Lungs are clear to auscultation bilaterally. Drains are serosanguineous. ASSESSMENT: Status post resection of omental abscess. PLAN: We will continue to work on diet and activity. In addition, we will work on discharge, which we anticipate in the next 24-48 hours. Porter Paez MD /[id number]
[2017-02-26] MEDS: Nicotine 14 MG/24 Hr Patch TRDERM SCH (09:52)
[2017-02-27] MEDS: Acetaminophen/HYDROcodone 325-5 MG Tab PO PRN ×4 (01:44→14:17)
[2017-02-27] MEDS: cefOXitin 2 GM in Sodium Chloride 0.9% 50 ML IV SCH ×2 (01:45→05:48)
[2017-02-27] MEDS: metroNIDAZOLE/Normal Saline 500 MG in Premix Bag 1 BAG IV SCH (05:48)
[2017-02-27] MEDS: Ferrous Sulfate 325 MG Tab PO SCH ×2 (07:52→10:59)
[2017-02-27] MEDS: Vitamin B Complex Tab PO SCH (08:24)
[2017-02-27] MEDS: Sucralfate Suspension 1 GM/10 ML Cup PO SCH ×2 (08:24→11:57)
[2017-02-27] MEDS: Citalopram 20 MG Tab PO SCH (08:25)
[2017-02-27] MEDS: Baclofen 10 MG Tab PO SCH ×2 (08:25→14:03)
[2017-02-27] MEDS: Pantoprazole 40 MG Tab.CR PO SCH (08:25)
[2017-02-27] MEDS: Nicotine 14 MG/24 Hr Patch TRDERM SCH (09:08)
[2017-02-27 10:55] VITALS: BP 105/54
--- NOTE | 2017-03-04 10:35 | DISCH ---
DISCHARGE DIAGNOSIS: Status post resection of omental mass and abscess. SUMMARY OF HOSPITAL COURSE: Pleasant 37-year-old female with right lower quadrant abdominal pain and a mass in the right lower quadrant, was identified by CT scan. The patient was taken to the operating room and the mental mass was identified and had an abscess associated with this. This was resected. The patient did well postoperatively. Prior to discharge, her pain is well controlled. She had no nausea, vomiting, shortness of breath, or chest pain. Follow up with surgery in 7-10 days. DISCHARGE MEDICATIONS: Please see MAR. ACTIVITY: No lifting greater than 30 pounds x30 days.
--- NOTE | 2017-03-04 10:38 | PN ---
DATE OF SERVICE: 02/23/2017 SUBJECTIVE: The patient is doing well. Pain is well controlled. No nausea, vomiting, shortness of breath, or chest pain. OBJECTIVE: VITAL SIGNS: Stable. CARDIOVASCULAR: Regular rhythm and rate. RESPIRATORY: Lungs are clear to consultation bilaterally. ABDOMEN: Incisions healing well. ASSESSMENT: Status post abscess/omental mass removal. PLAN: Continue to work on diet and activity today. No nausea, vomiting, shortness of breath, or chest pain, so continue on with the advancement of the plan. Porter Paez MD /[id number]
--- NOTE | 2017-03-05 09:01 | OR ---
DATE OF PROCEDURE: 02/22/2017 PROCEDURE: 1. Diagnostic laparoscopy. 2. Drainage of intraabdominal abscess. 3. Resection of omentum. COMPLICATIONS: None. CYTOLOGY TEACHER: None. ANESTHESIA: General/local. INDICATIONS: A 37-year-old female with right lower quadrant abdominal mass of unknown etiology, requiring evaluation. RISKS: Risks, benefits, alternatives, limitations including, but not limited to infection, bleeding, and perforation of abdominal structures were explained to the patient and wished to proceed. PREOPERATIVE DIAGNOSIS: Abdominal mass. POSTOPERATIVE DIAGNOSIS: Abdominal mass. PROCEDURE IN DETAIL: The patient was placed in supine position. A supraumbilical curvilinear incision was made. A Veress needle was used to enter the abdomen without abnormality, and a drop test was performed without abnormality. Two additional ports were also entered under direct visualization into the right abdomen. Diagnostic laparoscopy was then commenced. There were no abnormalities except the omentum was adhered to the anterior abdominal wall in close approximation to the uterus. This was of unknown etiology, but this was found to be not involving the right ovary nor the fallopian tube. The best course of action would be resection of this. This was resected using a Harmonic Scalpel. There was also an abscess associated with this, which was thoroughly irrigated after culturing and suction removal. Cultures were obtained of the abscess also. This was then removed using a bag system. The ports were then irrigated and the air was removed. The wounds were closed with 3-0 Vicryl and 4-0 Vicryl in interrupted running fashion, and the patient tolerated procedure well. Porter Paez MD /[id number]
== END 2017-02-27 14:45 | disposition home or self-care (01) | DRG 358 ==
LOC: JP.ED 17:08 → JP.2SS 02-22
PROVIDERS: ADMIT Hospitalist; ATTEND Hospitalist
PROC: 0DBU4ZX Excision of Omentum, Percutaneous Endoscopic Approach, Diagnostic (ICD-10-PCS; principal; 2017-02-22)
PROC: 0W9G4ZX Drainage of Peritoneal Cavity, Percutaneous Endoscopic Approach, Diagnostic (ICD-10-PCS; principal; 2017-02-22)
DX: K65.1 Peritoneal abscess (principal); B95.0 Streptococcus, group A, as the cause of diseases classified elsewhere; F17.210 Nicotine dependence, cigarettes, uncomplicated; D50.9 Iron deficiency anemia, unspecified; K21.9 Gastro-esophageal reflux disease without esophagitis; Z23 Encounter for immunization; M54.9 Dorsalgia, unspecified; G89.29 Other chronic pain; E53.8 Deficiency of other specified B group vitamins; Z98.84 Bariatric surgery status; F41.9 Anxiety disorder, unspecified; F32.9 Major depressive disorder, single episode, unspecified; Z88.5 Allergy status to narcotic agent; Z88.0 Allergy status to penicillin; Z88.2 Allergy status to sulfonamides
CPT/HCPCS: 36415; 51798; 74177; 76830; 76856; 80048; 80053; 81001; 81025; 84132; 85025; 85027; 86140; 87070; 87075; 87205; 87210; 87491; 87591; 88304; 90686; 94762; 96361; 96365; 96375; 96376; 99285-25; A9270-GY; G0008; J0694; J1100; J1170; J1200; J2060; J2405; J2704; J2710; J3010; J3420; J7030; J7040; J7050; J7120; Q9967

== ENCOUNTER 2017-06-25 08:00 | Day surgery (SDC) | payer MEDICAID ==
[~2017-06-25 08:00] MED LIST: Acetaminophen 500 MG Tab PO ONE; Bupivacaine 0.5%/EPINEPHrine 1:200,000 50 ML MDV ONE; Celecoxib 200 MG Cap PO ONE; Dexamethasone 4 MG/ML SDV ONE; Dextrose 5%-Lactated Ringers 1,000 ML IV SCH; Gabapentin 300 MG Cap PO ONE; Neostigmine Methylsulfate 1 MG/ML 5 ML Syringe ONE; Ondansetron 4 MG/2 ML SDV ONE; Propofol 200 MG/20 ML SDV ONE; Rocuronium 50 MG/5 ML Vial ONE; Ropivacaine 26 ML, Dexamethasone 8 MG, EPINEPHrine 0.4 MG, Sodium Chloride 0.9% 51.6 ML NERVRT SCH; Succinylcholine/Normal Saline 200 MG/10 ML Syringe ONE; ceFAZolin 2 GM in Premix Bag 1 BAG IV ONE; cefOXitin 2 GM Vial ONE; fentaNYL 250 MCG/5 ML SDV ONE
[2017-06-25] MEDS ORDERED: Ketamine 500 MG/5 ML MDV IV SCH (09:00)
[2017-06-25] MEDS ORDERED: Lidocaine 2% 100 MG/5 ML Syringe IVPUSH ONE (09:00)
[2017-06-25] MEDS ORDERED: Lidocaine 0.4%/D5W 2 GM/500 ML BAG IV SCH (09:00)
[2017-06-25] MEDS ORDERED: Lactated Ringers 1,000 ML ONE (09:51)
[2017-06-25] MEDS ORDERED: Linezolid 200 MG/100 ML Bag IRR ONE (10:00)
[2017-06-25] MEDS ORDERED: Bupivacaine 0.5%/EPINEPHrine 1:200,000 50 ML MDV INJECT ONE (10:15)
[2017-06-25] MEDS ORDERED: Ketorolac 60 MG/2 ML SDV IM ONE (10:45)
[2017-06-25] MEDS ORDERED: Sodium Chloride 0.9% 1,000 ML IV SCH (11:30)
[2017-06-25] MEDS ORDERED: Acetaminophen/HYDROcodone 325-5 MG Tab PO PRN (11:34)
[2017-06-25 12:55] VITALS: BP 111/71
--- NOTE | 2017-07-02 19:22 | OR ---
DATE OF PROCEDURE: 06/25/2017 PREOPERATIVE DIAGNOSIS: Incarcerated epigastric hernia. POSTOPERATIVE DIAGNOSES: 1. Incarcerated incisional hernia. 2. Incarcerated epigastric hernia. 3. Focal right pelvic sidewall endometriosis. OPERATIVE PROCEDURE: Diagnostic laparoscopy with lysis of adhesions: 1. Repair of incarcerated incisional hernia with mesh (68485). 2. Repair of incarcerated epigastric hernia with mesh (72619). 3. Ablation of pelvic wall endometriosis (18892). 4. Placement of Interceed mesh to limit recurrent pelvic and abdominal wall adhesions ([id number]). ANESTHESIA: General. ASSISTANTS: 1. Laura Platt PA-C. 2. Felipe Murrieta MS-3. INDICATIONS FOR PROCEDURE: This is a 37-year-old presenting with incarcerated epigastric hernia. She also has some discomfort in the area of the umbilical area where she had a previous incision and additional herniation at that site as well. Plan is to proceed with a diagnostic laparoscopy with repair of the hernias with mesh. Potential risks of the procedure including bleeding, infection, injury to the underlying viscera, problems with the mesh becoming infected or the hernia recurring were all reviewed, and the patient wishes to proceed. DETAILS OF THE PROCEDURE: The patient was taken to the operating room and after general endotracheal anesthesia was induced, a Kim catheter was inserted and the abdomen was prepped and draped. In the left lateral mid abdomen, a transverse incision was made. The peritoneal cavity was entered under direct vision with Optiview trocar, inflated to 15 mmHg pressure with CO2. Laparoscope was then reinserted. No underlying trocar insertion site injuries were seen. Following this, bilateral midabdominal transversus abdominis plane blocks were placed with direct visualization of the needle in the transverse abdominis plane and injection of this with the standard solution bilaterally. Following this, 5-mm trocar was placed in the left upper quadrant as well as in the left lower quadrant and general exploration was undertaken. The patient was noted to have 2 hernias, 1 was the epigastric hernia which was more evident clinically preoperatively, this was roughly 3 fingerbreadths above the umbilicus contained incarcerated preperitoneal fat within it. There was a smaller incisional hernia where the patient had a previous periumbilical trocar placed for treatment of her endometriosis, which contained some incarcerated omentum within it. Additionally, the patient had a well-defined area of endometriosis along the right pelvic sidewall, which actually had some blood within it. Visualization of the remainder of the pelvis did not reveal any additional areas of endometriosis or bloody fluid. At this point, the area of endometriosis was abraded with electrocautery. Following this, then the omental adhesions from the incisional hernia were taken down with external portion along with division with Harmonic scalpel. The peritoneum extending above that was then divided up to the level of the epigastric hernia, which then allowed delivery of the incarcerated preperitoneal fat from that location as well. Apart from that, there were some adhesions between the small bowel, omentum, and lower abdominal and pelvic sidewalls related to her previous endometriosis. These were taken down with Harmonic Scalpel as well. Following this, then a Ventralight ST hernia mesh with a circular configuration and 15.2 cm diameter was selected, was soaked in antibiotic-containing saline solution and placed in intraperitoneal location. A small stab wound was made just below the umbilicus and the inflation catheter which centered the mesh was then pulled up through that incision and the balloon inflated, thus pushing the mesh up against the abdominal wall. The mesh was then fixed circumferentially with 2 rows of absorbable tacking screws. Following this, the balloon catheter was deflated and the balloon removed and the mesh was inspected and found to be well fixed in all locations. At that point, no further problems were noted to prevent recurrent adhesion formation both between the mesh as well as the pelvic abdominal mccallum to the underlying small and large bowel. Two Interceed meshes were then placed, [address] newly placed ST hernia mesh and the 2nd one down in the lower aspect of the pelvis. Following this, the 12-mm camera port trocar was removed and the fascia was closed with 0 Vicryl stitch, the remaining trocars were removed and the peritoneal cavity deflated. Incision was closed with 4-0 Vicryl skin stitch. Dressing was applied. The patient was taken to the recovery room in satisfactory condition. There were no complications. Physician business banking sales assistant, Laura Platt, played an essential role in assisting in this case, helping to position the patient, retract structures as needed, as well as suturing and cutting sutures as indicated. Her presence improved patient safety and decreased operative time. John Chan MD /[id number]
== END 2017-06-25 13:17 | disposition home or self-care (01) ==
LOC: JP.SDS 08:00
PROVIDERS: ATTEND Surgery
DX: K43.6 Other and unspecified ventral hernia with obstruction, without gangrene (principal); K43.0 Incisional hernia with obstruction, without gangrene; F41.9 Anxiety disorder, unspecified; K21.9 Gastro-esophageal reflux disease without esophagitis; F33.9 Major depressive disorder, recurrent, unspecified; E66.01 Morbid (severe) obesity due to excess calories; Z88.0 Allergy status to penicillin; Z88.1 Allergy status to other antibiotic agents; Z88.2 Allergy status to sulfonamides; Z88.8 Allergy status to other drugs, medicaments and biological substances; Z79.899 Other long term (current) drug therapy; Z68.21 Body mass index [BMI] 21.0-21.9, adult
CPT/HCPCS: 81025; 88302; A9270-GY; C1781; J0171; J0690; J0694; J1100; J1885; J2020; J2405; J2704; J2795; J3010; J7030; J7040; J7042; J7050; J7120; Q0138

== ENCOUNTER 2017-07-27 17:07 | Emergency (ER) | payer MEDICAID ==
[2017-07-27] MEDS ORDERED: Sodium Chloride 0.9% 10 ML Syringe FLUSH PRN ×2 (17:42→18:52)
[2017-07-27] MEDS ORDERED: Lactated Ringers 1,000 ML IV SCH (17:45)
[2017-07-27] MEDS ORDERED: Ondansetron 4 MG/2 ML SDV IVPUSH ONE (17:45)
[2017-07-27] MEDS ORDERED: HYDROmorphone 1 MG/ML Syringe IVPUSH ONE (17:45)
--- NOTE | 2017-07-27 17:47 | EDM.PDOC ---
ED HPI GENERAL MEDICAL PROBLEM - General Chief Complaint: Abdominal Pain Stated Complaint: ABD PAIN Time Seen by Provider: 07/27/17 17:37 Source of Information: Reports: Patient, RN Notes Reviewed History Limitations: Reports: No Limitations - History of Present Illness INITIAL COMMENTS - FREE TEXT/NARRATIVE: 37-year-old female presents to the emergency department today complaint of abdominal pain, she does have a history of gastric bypass about 8 years ago recently had an umbilical hernia repair 4 days ago, she states the pain has been going on for about 24 hours rates the pain 9 out of 10 is nauseated has been unable to keep any food products down Upper Abdominal Pain Score (Numeric/FACES): 8 - Related Data Allergies Allergy/AdvReac Type Severity Reaction Status Date / Time codeine Allergy Unknown Hives Verified 07/27/17 17:30 erythromycin base Allergy Unknown Cannot Verified 07/27/17 17:30 [Erythromycin Base] Remember Penicillins Allergy Unknown Cannot Verified 07/27/17 17:30 Remember Sulfa (Sulfonamide Allergy Unknown Blisters Verified 07/27/17 17:30 Antibiotics) Home Meds: Home Meds Cyanocobalamin (Vitamin B-12) [Vitamin B-12] 1,000 mcg IM ASDIRECTED 03/30/13 [ History] Cyanocobalamin (Vitamin B-12) [Vitamin B-12] 2,000 mcg PO DAILY 03/30/13 [ History] Ferrous Fumarate [Iron] 325 mg PO TID 03/30/13 [History] Multivitamin [Multivitamins] 2 each PO DAILY 03/30/13 [History] Vitamin B Complex [Vitamin B-100 Complex] 2 tab PO DAILY 03/30/13 [History] Calcium Carbonate [Calcium] 600 mg PO DAILY 08/23/13 [History] Baclofen 10 mg PO TID PRN 12/01/13 [History] traZODone 25 mg PO BEDTIME 02/25/17 [History] Citalopram [Citalopram HBr] 20 mg PO DAILY 06/21/17 [History] Gabapentin [Neurontin] 300 mg PO BID 06/21/17 [History] LORazepam [LORazepam] 1 mg PO TID 06/21/17 [History] Nicotine [Nicotine Patch] 1 patch TD DAILY 06/21/17 [History] Ibuprofen [Motrin] 800 mg PO BID PRN 02/12/18 [History] Past Medical History Gastrointestinal History: Reports: Bowel Obstruction, Cholelithiasis, GERD Other Gastrointestinal History: chronic abdinal 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: Musculoskeletal History: Reports: Back Pain, Chronic Neurological History: Reports: Concussion, Migraines Psychiatric History: Reports: ADD, Anxiety, Depression Hematologic History: Reports: Anemia, B12 Deficiency, Iron Deficiency - Infectious Disease History Infectious Disease History: Reports: Chicken Pox - Past Surgical History HEENT Surgical History: Reports: Tonsillectomy GI Surgical History: Reports: Bariatric Procedure, Cholecystectomy, Colon, EGD, Hernia, Abdominal, Small Bowel Female Surgical History: Reports: Section, Tubal Ligation Social & Family History - Family History Cardiac: Reports: Heart Failure, High Cholesterol, Hypertension Respiratory: Reports: 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) Other Respiratory Family Hisory: Emphasema Musculoskeletal: Reports: Arthritis Neurological: Reports: Alzheimers Disease Psychiatric: Reports: None Endocrine/Metabolic: Reports: Diabetes, Type I, Obesity/MBI 30+ Oncologic: Reports: Colon, Skin - Tobacco Use Smoking Status *Q: Light Tobacco Smoker Years of Tobacco use: 2 Packs/Tins Daily: 0.5 Used Tobacco, but Quit: Yes Month Tobacco Last Used: february 2017 Second Hand Smoke Exposure: Yes - Caffeine Use Caffeine Use: Reports: Coffee, Soda - Alcohol Use Days Per Week of Alcohol Use: 4 Number of Drinks Per Day: 2 Total Drinks Per Week: 8 - Recreational Drug Use Recreational Drug Use: No ED ROS GENERAL - Review of Systems Review Of Systems: See Below Constitutional: Denies: Fever, Chills HEENT: Reports: No Symptoms Respiratory: Reports: No Symptoms Cardiovascular: Reports: No Symptoms GI/Abdominal: Reports: Abdominal Pain, Nausea, Vomiting : Reports: No Symptoms Musculoskeletal: Reports: No Symptoms Skin: Reports: No Symptoms Neurological: Reports: No Symptoms ED EXAM, GI/ABD - Physical Exam Exam: See Below Text/Narrative:: General: Female moderate discomfort secondary to pain, alert and oriented x3 HEENT: head is atraumatic normocephalic, eyes pupils equal round reactive to light, sclera clear no conjunctivitis appreciated. Ears tympanic membranes clear and gutierrez landmarks and light reflex are present bilaterally canals are clear. Nose no septal deviation, nares are clear, no blood present. Mouth mucosa is moist and pink no erythema or exudate noted in soft palate, tongue is midline uvula is midline, dentition is intact. Neck: Supple no thyromegaly no tracheal deviation. Nodes: Cervical nodes subclavicular nodes nontender no palpable lymphadenopathy noted. Lungs: clear to auscultation bilaterally with symmetrical respirations, no adventitious noise appreciated. CV: Regular rate and rhythm S1 and S2 appreciated no murmurs rubs or gallops noted. Abdomen: Soft, generalized tenderness to palpation, no palpable masses or organomegaly appreciated, moderate distention no guarding bowel sounds are present, surgical scar is clean dry and intact. Neuro: Cranial nerves II through XII grossly intact Skin: Warm and dry, intact Extremities: No lower extremity edema appreciated, . Course - Vital Signs Last Recorded V/S: Last Vital Signs Temp 95.5 F 07/27/17 17:29 Pulse 85 07/27/17 18:27 Resp 18 07/27/17 18:27 BP 112/74 07/27/17 18:27 Pulse Ox 100 07/27/17 18:27 - Orders/Labs/Meds Orders: Active Orders 24 hr Category Date Time Status Enema [RC] ASDIRECTED Care 07/27/17 19:58 Active Peripheral IV Care [RC] . DIRECTED Care 07/27/17 17:43 Active Abdomen 1V Flat [CR] Stat Exams 07/27/17 17:47 Taken Abdomen Pelvis w Cont [CT] Urgent Exams 07/27/17 17:42 Taken Iopamidol [Isovue-300 (61%)] Med 07/27/17 19:00 Active 80 ml IV . DIRECTED Lactated Ringers [Ringers, Lactated] 1,000 ml Med 07/27/17 17:45 Active IV ASDIRECTED Sodium Chloride 0.9% [Normal Saline] 80 ml Med 07/27/17 19:00 Active IV ASDIRECTED Sodium Chloride 0.9% [Saline Flush] Med 07/27/17 17:42 Active 10 ml FLUSH ASDIRECTED PRN Sodium Chloride 0.9% [Saline Flush] Med 07/27/17 18:52 Active 10 ml FLUSH ASDIRECTED PRN Peripheral IV Insertion Adult [OM.PC] Urgent Oth 07/27/17 17:42 Ordered Medication Orders Lactated Ringer's (Ringers, Lactated) 1,000 mls @ 125 mls/hr IV ASDIRECTED JESS Last Admin: 07/27/17 18:25 Dose: 125 mls/hr Sodium Chloride (Normal Saline) 80 mls @ 3 mls/sec IV ASDIRECTED JESS Last Admin: 07/27/17 19:14 Dose: 3 mls/sec Iopamidol (Isovue-300 (61%)) 80 ml IV . DIRECTED JESS Last Admin: 07/27/17 19:14 Dose: 80 ml Sodium Chloride (Saline Flush) 10 ml FLUSH ASDIRECTED PRN PRN Reason: Keep Vein Open Last Admin: 07/27/17 18:23 Dose: 10 ml Sodium Chloride (Saline Flush) 10 ml FLUSH ASDIRECTED PRN PRN Reason: Keep Vein Open Last Admin: 07/27/17 19:14 Dose: 10 ml Labs: Laboratory Tests 07/27/17 07/27/17 07/27/17 Range/Units 17:55 17:55 17:55 WBC 6.1 (4.5-11.0) K/uL RBC 4.72 (3.30-5.50) M/uL Hgb 13.9 D (12.0-15.0) g/dL Hct 41.6 (36.0-48.0) % MCV 88 (80-98) fL MCH 29 (27-31) pg MCHC 33 (32-36) % Plt Count 288 (150-400) K/uL Neut % (Auto) 70 H (36-66) % Lymph % (Auto) 20 L (24-44) % Robeson % (Auto) 7 H (2-6) % Eos % (Auto) 3 (2-4) % Baso % (Auto) 1 (0-1) % Sodium 145 (140-148) mmol/L Potassium 3.8 (3.6-5.2) mmol/L Chloride 109 H (100-108) mmol/L Carbon Dioxide 27 (21-32) mmol/L Anion Gap 12.8 (5.0-14.0) mmol/L BUN 13 (7-18) mg/dL Creatinine 0.8 (0.6-1.0) mg/dL Est Cr Clr Drug Dosing 72.65 mL/min Estimated GFR (MDRD) > 60 (>60) Glucose 94 (74-106) mg/dL Lactic Acid 1.9 (0.4-2.0) mmol/L Calcium 8.1 L (8.5-10.1) mg/dL Total Bilirubin 0.1 L D (0.2-1.0) mg/dL AST 14 L (15-37) U/L ALT 20 (12-78) U/L Alkaline Phosphatase 89 (46-116) U/L Total Protein 6.6 (6.4-8.2) g/dL Albumin 3.4 (3.4-5.0) g/dL Globulin 3.2 (2.3-3.5) g/dL Albumin/Globulin Ratio 1.1 L (1.2-2.2) Lipase 180 (73-393) U/L HCG, Qual Urine Color Urine Appearance Urine pH (4.5-8.0) Ur Specific [place] (1.008-1.030) Urine Protein (NEGATIVE) mg/dL Urine Glucose (UA) (NEGATIVE) mg/dL Urine Ketones (NEGATIVE) mg/dL Urine Occult Blood (NEGATIVE) Urine Nitrite (NEGATIVE) Urine Bilirubin (NEGATIVE) Urine Urobilinogen (NORMAL) mg/dL Ur Leukocyte Esterase (NEGATIVE) Urine RBC (0-5) Urine WBC (0-5) Ur Epithelial Cells Amorphous Sediment Urine Bacteria Urine Mucus Urine Other 07/27/17 07/27/17 Range/Units 17:55 20:25 WBC (4.5-11.0) K/uL RBC (3.30-5.50) M/uL Hgb (12.0-15.0) g/dL Hct (36.0-48.0) % MCV (80-98) fL MCH (27-31) pg MCHC (32-36) % Plt Count (150-400) K/uL Neut % (Auto) (36-66) % Lymph % (Auto) (24-44) % Robeson % (Auto) (2-6) % Eos % (Auto) (2-4) % Baso % (Auto) (0-1) % Sodium (140-148) mmol/L Potassium (3.6-5.2) mmol/L Chloride (100-108) mmol/L Carbon Dioxide (21-32) mmol/L Anion Gap (5.0-14.0) mmol/L BUN (7-18) mg/dL Creatinine (0.6-1.0) mg/dL Est Cr Clr Drug Dosing mL/min Estimated GFR (MDRD) (>60) Glucose (74-106) mg/dL Lactic Acid (0.4-2.0) mmol/L Calcium (8.5-10.1) mg/dL Total Bilirubin (0.2-1.0) mg/dL AST (15-37) U/L ALT (12-78) U/L Alkaline Phosphatase (46-116) U/L Total Protein (6.4-8.2) g/dL Albumin (3.4-5.0) g/dL Globulin (2.3-3.5) g/dL Albumin/Globulin Ratio (1.2-2.2) Lipase (73-393) U/L HCG, Qual Negative Urine Color Yellow Urine Appearance Slightly cloudy Urine pH 5.0 (4.5-8.0) Ur Specific [place] 1.020 (1.008-1.030) Urine Protein Negative (NEGATIVE) mg/dL Urine Glucose (UA) Normal (NEGATIVE) mg/dL Urine Ketones Negative (NEGATIVE) mg/dL Urine Occult Blood Large (NEGATIVE) Urine Nitrite Negative (NEGATIVE) Urine Bilirubin Negative (NEGATIVE) Urine Urobilinogen Normal (NORMAL) mg/dL Ur Leukocyte Esterase Negative (NEGATIVE) Urine RBC 5-10 H (0-5) Urine WBC 0-5 (0-5) Ur Epithelial Cells Few Amorphous Sediment Not seen Urine Bacteria Moderate Urine Mucus Rare Urine Other Meds: Medications Generic Name Dose Route Start Last Admin Trade Name Freq PRN Reason Stop Dose Admin Lactated Ringer's 1,000 mls @ 125 mls/hr 07/27/17 17:45 07/27/17 18:25 Ringers, Lactated IV 125 mls/hr ASDIRECTED JESS Administration Sodium Chloride 80 mls @ 3 mls/sec 07/27/17 19:00 07/27/17 19:14 Normal Saline IV 3 mls/sec ASDIRECTED JESS Administration Iopamidol 80 ml 07/27/17 19:00 07/27/17 19:14 Isovue-300 (61%) IV 80 ml . DIRECTED JESS Administration Sodium Chloride 10 ml 07/27/17 17:42 07/27/17 18:23 Saline Flush FLUSH 10 ml ASDIRECTED PRN Administration Keep Vein Open Sodium Chloride 10 ml 07/27/17 18:52 07/27/17 19:14 Saline Flush FLUSH 10 ml ASDIRECTED PRN Administration Keep Vein Open Discontinued Medications Generic Name Dose Route Start Last Admin Trade Name Freq PRN Reason Stop Dose Admin Hydromorphone HCl 1 mg 07/27/17 17:45 07/27/17 18:23 Dilaudid IVPUSH 07/27/17 17:46 1 mg ONETIME ONE Administration Ondansetron HCl 4 mg 07/27/17 17:45 07/27/17 18:22 Zofran IVPUSH 07/27/17 17:46 4 mg ONETIME ONE Administration Prochlorperazine Edisylate 5 mg 07/27/17 18:56 07/27/17 19:01 Compazine IVPUSH 07/27/17 18:57 5 mg ONETIME ONE Administration Departure - Departure Time of Disposition: 20:56 Disposition: Home, Self-Care 01 Condition: Good Clinical Impression: Functional constipation - Discharge Information Referrals: Maikol Way MD [Primary Care Provider] - Forms: ED Department Discharge Additional Instructions: Continue regular medications, follow-up with your primary care as needed - My Orders Last 24 Hours: My Active Orders 07/27/17 17:42 Abdomen Pelvis w Cont [CT] Urgent Sodium Chloride 0.9% [Saline Flush] 10 ml FLUSH ASDIRECTED PRN Peripheral IV Insertion Adult [OM.PC] Urgent 07/27/17 17:43 Peripheral IV Care [RC] . DIRECTED 07/27/17 17:45 Lactated Ringers [Ringers, Lactated] 1,000 ml IV ASDIRECTED 07/27/17 17:47 Abdomen 1V Flat [CR] Stat 07/27/17 18:52 Sodium Chloride 0.9% [Saline Flush] 10 ml FLUSH ASDIRECTED PRN 07/27/17 19:00 Iopamidol [Isovue-300 (61%)] 80 ml IV . DIRECTED Sodium Chloride 0.9% [Normal Saline] 80 ml IV ASDIRECTED 07/27/17 19:58 Enema [RC] ASDIRECTED - Assessment/Plan Last 24 Hours: My Active Orders 07/27/17 17:42 Abdomen Pelvis w Cont [CT] Urgent Sodium Chloride 0.9% [Saline Flush] 10 ml FLUSH ASDIRECTED PRN Peripheral IV Insertion Adult [OM.PC] Urgent 07/27/17 17:43 Peripheral IV Care [RC] . DIRECTED 07/27/17 17:45 Lactated Ringers [Ringers, Lactated] 1,000 ml IV ASDIRECTED 07/27/17 17:47 Abdomen 1V Flat [CR] Stat 07/27/17 18:52 Sodium Chloride 0.9% [Saline Flush] 10 ml FLUSH ASDIRECTED PRN 07/27/17 19:00 Iopamidol [Isovue-300 (61%)] 80 ml IV . DIRECTED Sodium Chloride 0.9% [Normal Saline] 80 ml IV ASDIRECTED 07/27/17 19:58 Enema [RC] ASDIRECTED Plan: Assessment Acuity = acute Site and laterality = functional constipation Etiology = slow transit time Manifestations = none Location of injury = Home Lab values = CBC, CMP unremarkable, urinalysis reveals a specific gravity 1.02 consistent with intravascular volume dehydration, RBCs 5-10 consistent hematuria ,, CT scan shows large amount of stool and gas no obstruction no free air Plan She was provided fleets enema and Dulcolax suppositories called discussed case with Dr. Chan general surgery. She had good improvement with the enema plan is discharge home follow-up primary care as needed This note was dictated using [employer] voice recognition software please call with any questions on syntax or jorge.
[2017-07-27 18:28] VITALS: BP 112/74
[2017-07-27] MEDS ORDERED: Prochlorperazine 10 MG/2 ML SDV IVPUSH ONE (18:56)
[2017-07-27] MEDS ORDERED: Sodium Chloride 0.9% 80 ML IV SCH (19:00)
[2017-07-27] MEDS ORDERED: Iopamidol 612 MG/ML 100 ML Bottle IV SCH (19:00)
--- NOTE | 2017-07-30 08:40 | CR ---
Abdomen 1V Flat HISTORY: Pain, distention COMPARISON: CT scan 07/27/2017 FINDINGS: Moderate amount of stool throughout the colon. Mild gaseous distention of the small and lar ge bowel to the level of the rectum may represent diffuse ileus. There is no free air. Prior cholecys tectomy. Prior gastric bypass with surgical clips in the region of the stomach. Impression: Diffuse distention of large and small bowel with moderate stool within the colon. This may represent diffuse mild ileus. No strong findings for mechanical bowel obstruction.
== END 2017-07-27 21:16 | disposition home or self-care (01) ==
LOC: JP.ED 17:07
DX: K59.04 Chronic idiopathic constipation (principal); K21.9 Gastro-esophageal reflux disease without esophagitis; F17.210 Nicotine dependence, cigarettes, uncomplicated; Z88.5 Allergy status to narcotic agent; Z88.2 Allergy status to sulfonamides; Z79.899 Other long term (current) drug therapy; Z88.1 Allergy status to other antibiotic agents
CPT/HCPCS: 36415; 74018; 74018-26; 74177; 80053; 81001; 83605; 83690; 84703; 85025; 96361; 96374; 96375; 99284-25; J0780; J1170; J2405; J7030; J7050; J7120; Q9967

== ENCOUNTER 2017-11-16 17:20 | Emergency (ER) | payer MEDICAID ==
[2017-11-16] MEDS ORDERED: Acetaminophen/oxyCODONE 325-5 MG Tab PO ONE (18:08)
--- NOTE | 2017-11-16 18:12 | EDM.PDOC ---
ED HPI GENERAL MEDICAL PROBLEM - General Chief Complaint: Lower Extremity Injury/Pain Stated Complaint: FELL AND HURT LEFT ANKLE Time Seen by Provider: 11/16/17 18:00 Source of Information: Reports: Patient History Limitations: Reports: No Limitations - History of Present Illness INITIAL COMMENTS - FREE TEXT/NARRATIVE: Mya is a 37 year old female who presents to the ED today with c/o left ankle and foot pain. Patient was up about 5 feet in a tree when she started to climb down the ladder, she fell and landed on left ankle, foot first. She denies any other injuries. Denies any back, chest, abdominal pain. Denies any other extremity injury/pain. Denies hitting her head. Took Ibuprofen prior to arrival with no relief in her symptoms. Onset: Today, Sudden Left Ankle Pain Score (Numeric/FACES): 10 - Related Data Allergies Allergy/AdvReac Type Severity Reaction Status Date / Time codeine Allergy Unknown Hives Verified 11/16/17 17:44 erythromycin base Allergy Unknown Cannot Verified 11/16/17 17:44 [Erythromycin Base] Remember Penicillins Allergy Unknown Cannot Verified 11/16/17 17:44 Remember Sulfa (Sulfonamide Allergy Unknown Blisters Verified 11/16/17 17:44 Antibiotics) Home Meds: Home Meds Cyanocobalamin (Vitamin B-12) [Vitamin B-12] 1,000 mcg IM ASDIRECTED 03/30/13 [ History] Cyanocobalamin (Vitamin B-12) [Vitamin B-12] 2,000 mcg PO DAILY 03/30/13 [ History] Ferrous Fumarate [Iron] 325 mg PO TID 03/30/13 [History] Multivitamin [Multivitamins] 2 each PO DAILY 03/30/13 [History] Vitamin B Complex [Vitamin B-100 Complex] 2 tab PO DAILY 03/30/13 [History] Calcium Carbonate [Calcium] 600 mg PO DAILY 08/23/13 [History] Baclofen 10 mg PO TID PRN 12/01/13 [History] traZODone 25 mg PO BEDTIME 02/25/17 [History] Citalopram [Citalopram HBr] 20 mg PO DAILY 06/21/17 [History] Gabapentin [Neurontin] 300 mg PO BID 06/21/17 [History] LORazepam 1 mg PO TID 06/21/17 [History] Nicotine [Nicotine Patch] 1 patch TD DAILY 06/21/17 [History] Ibuprofen [Motrin] 800 mg PO BID PRN 07/02/17 [History] Past Medical History Gastrointestinal History: Reports: Bowel Obstruction, Cholelithiasis, GERD Other Gastrointestinal History: chronic abdinal pain 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: Musculoskeletal History: Reports: Back Pain, Chronic Neurological History: Reports: Concussion, Migraines Psychiatric History: Reports: ADD, Anxiety, Depression Hematologic History: Reports: Anemia, B12 Deficiency, Iron Deficiency Oncologic (Cancer) History: Reports: 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) Other Oncologic History: 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 - Infectious Disease History Infectious Disease History: Reports: Chicken Pox - Past Surgical History HEENT Surgical History: Reports: Tonsillectomy GI Surgical History: Reports: Bariatric Procedure, Cholecystectomy, Colon, EGD, Hernia, Abdominal, Small Bowel Female Surgical History: Reports: Section, Tubal Ligation Social & Family History - Family History Cardiac: Reports: Heart Failure, High Cholesterol, Hypertension Respiratory: Reports: 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) Other Respiratory Family Hisory: Emphasema Musculoskeletal: Reports: Arthritis Neurological: Reports: Alzheimers Disease Psychiatric: Reports: None Endocrine/Metabolic: Reports: Diabetes, Type I, Obesity/MBI 30+ Oncologic: Reports: Colon, Skin - Tobacco Use Smoking Status *Q: Light Tobacco Smoker Years of Tobacco use: 4 Packs/Tins Daily: 1 Used Tobacco, but Quit: No Second Hand Smoke Exposure: No - Caffeine Use Caffeine Use: Reports: Coffee, Energy Drinks, Soda, Tea - Alcohol Use Days Per Week of Alcohol Use: 2 Number of Drinks Per Day: 2 Total Drinks Per Week: 4 - Recreational Drug Use Recreational Drug Use: Yes Review of Systems - Review of Systems Review Of Systems: ROS reveals no pertinent complaints other than HPI. ED EXAM, GENERAL - Physical Exam Exam: See Below Exam Limited By: No Limitations General Appearance: Alert, WD/WN, No Apparent Distress Throat/Mouth: Normal Inspection, Normal Oropharynx Head: Atraumatic Neck: Normal Inspection, Supple, Non-Tender, Full Range of Motion Respiratory/Chest: No Respiratory Distress, Lungs Clear, Normal Breath Sounds, Chest Non-Tender Cardiovascular: Normal Peripheral Pulses, Regular Rate, Rhythm, No Murmur Peripheral Pulses: 2+: Dorsalis Pedis (L) GI/Abdominal: Normal Bowel Sounds, Soft, Non-Tender Extremities: Other (left ankle swollen and tender left lateral malleolar region , left plane tender. No obvious deformity. Pedal pulses intact. remaining extremity exam is unremarakable) Neurological: Alert, Oriented, CN II-XII Intact Psychiatric: Normal Affect, Normal Mood Skin Exam: Warm, Dry, Intact Course - Vital Signs Last Recorded V/S: Last Vital Signs Temp 36.4 C 11/16/17 18:04 Pulse 87 11/16/17 18:04 Resp 16 11/16/17 18:04 BP 118/74 11/16/17 18:04 Pulse Ox 99 11/16/17 18:04 Mya is a 37 year old female, history of gastric bypass who presents to the emergency department today with complaints of left ankle pain. Patient was attempting to get down from a tree approximately 5 feet in the air when she misstepped on the ladder and fell landing on her left foot. Patient denies any other injuries. She arrives here hemodynamically stable. Patient denies any pain on exam to her back, chest, abdomen, neck and did not hit her head. Remaining extremities are unremarkable and atraumatic. Concern for fracture given exquisite tenderness and swelling on exam. X-rays of foot and left ankle were obtained. Foot fractures are negative for any acute osseous abnormality. Left ankle x-ray shows a medial malleolar fracture, distal fibula and tibial fracture both of which are fragmented and displaced. Pulses are intact, strength is 4 out of 5 secondary to pain. Capillary refill is intact. Patient was placed in a well padded Ortho-Glass splint, both U-splint and posterior for support. I discussed her case with KENNETH Delgado from [facility] who discussed case with surgeon and review patient's films. patient will be transferred to their facility as a direct admit with probable surgery sometime tomorrow. Patient is agreeable to plan of care. Peripheral IV has been established and patient has been getting Dilaudid for pain with good relief. CMS intact post splint application. Patient will be transferred via BLS in stable condition - Orders/Labs/Meds Orders: Active Orders 24 hr Category Date Time Status Peripheral IV Care [RC] . DIRECTED Care 11/16/17 18:47 Active Ankle Min 3V Lt [CR] Stat Exams 11/16/17 18:08 Taken Ankle wo Cont Lt [CT] Stat Exams 11/16/17 19:08 Stop Req Foot Comp Min 3V Lt [CR] Stat Exams 11/16/17 18:08 Taken Sodium Chloride 0.9% [Saline Flush] Med 11/16/17 18:47 Active 10 ml FLUSH ASDIRECTED PRN Peripheral IV Insertion Adult [OM.PC] Routine Oth 11/16/17 18:47 Ordered Medication Orders Sodium Chloride (Saline Flush) 10 ml FLUSH ASDIRECTED PRN PRN Reason: Keep Vein Open Meds: Medications Generic Name Dose Route Start Last Admin Trade Name Freq PRN Reason Stop Dose Admin Sodium Chloride 10 ml 11/16/17 18:47 Saline Flush FLUSH ASDIRECTED PRN Keep Vein Open Discontinued Medications Generic Name Dose Route Start Last Admin Trade Name Freq PRN Reason Stop Dose Admin Hydromorphone HCl 0.5 mg 11/16/17 18:48 11/16/17 19:26 Dilaudid IVPUSH 11/16/17 18:49 0.5 mg ONETIME ONE Administration Oxycodone/Acetaminophen 2 tab 11/16/17 18:08 11/16/17 18:40 Percocet 325-5 Mg PO 11/16/17 18:09 2 tab ONETIME ONE Administration Departure - Departure Time of Disposition: 20:30 Disposition: DC/Tfer to Acute Hospital 02 Condition: Good Clinical Impression: Ankle fracture, left Qualifiers: Encounter type: initial encounter Fracture type: closed Qualified Code(s): S82.892A - Other fracture of left lower leg, initial encounter for closed fracture - Discharge Information Referrals: Maikol Way MD [Primary Care Provider] - Forms: ED Department Discharge - My Orders Last 24 Hours: My Active Orders 11/16/17 18:08 Ankle Min 3V Lt [CR] Stat Foot Comp Min 3V Lt [CR] Stat 11/16/17 18:47 Peripheral IV Care [RC] . DIRECTED Sodium Chloride 0.9% [Saline Flush] 10 ml FLUSH ASDIRECTED PRN Peripheral IV Insertion Adult [OM.PC] Routine 11/16/17 19:08 Ankle wo Cont Lt [CT] Stat - Assessment/Plan Last 24 Hours: My Active Orders 11/16/17 18:08 Ankle Min 3V Lt [CR] Stat Foot Comp Min 3V Lt [CR] Stat 11/16/17 18:47 Peripheral IV Care [RC] . DIRECTED Sodium Chloride 0.9% [Saline Flush] 10 ml FLUSH ASDIRECTED PRN Peripheral IV Insertion Adult [OM.PC] Routine 11/16/17 19:08 Ankle wo Cont Lt [CT] Stat
[2017-11-16 18:37] VITALS: BP 118/74
[2017-11-16] MEDS ORDERED: Sodium Chloride 0.9% 10 ML Syringe FLUSH PRN (18:47)
[2017-11-16] MEDS ORDERED: HYDROmorphone 0.5 MG/0.5 ML Syringe IVPUSH ONE (18:48)
== END 2017-11-16 20:07 ==
LOC: JP.ED 17:20
DX: S82.892A Other fracture of left lower leg, initial encounter for closed fracture (principal); K21.9 Gastro-esophageal reflux disease without esophagitis; F17.210 Nicotine dependence, cigarettes, uncomplicated; Z88.5 Allergy status to narcotic agent; Z88.1 Allergy status to other antibiotic agents; Z88.0 Allergy status to penicillin; Z88.2 Allergy status to sulfonamides; Z79.899 Other long term (current) drug therapy; W17.89XA Other fall from one level to another, initial encounter
CPT/HCPCS: 29515; 73610; 73630; 96374; 99284; A9270; J1170

== ENCOUNTER 2018-02-12 07:31 | Emergency (ER) | payer MEDICAID ==
[2018-02-12 07:50] VITALS: BP 122/72
[2018-02-12] MEDS ORDERED: Ondansetron 4 MG Tab.DIS PO ONE (08:02)
[2018-02-12] MEDS ORDERED: Ketorolac 30 MG/ML SDV IM ONE (08:02)
--- NOTE | 2018-02-12 08:05 | EDM.PDOC ---
ED HPI GENERAL MEDICAL PROBLEM - General Chief Complaint: Lower Extremity Injury/Pain Stated Complaint: PAIN AND SWELLING IN LEFT ANKLE Time Seen by Provider: 02/12/18 07:59 Source of Information: Reports: Patient, RN Notes Reviewed History Limitations: Reports: No Limitations - History of Present Illness INITIAL COMMENTS - FREE TEXT/NARRATIVE: 37-year-old female presents to the emergency department today complaint of left ankle pain, she does have a history of ankle surgery with hardware last night she twisted with a misstep and she believes her ankle went out. She is experiencing pain cannot bear weight is using crutches also nausea from the pain has been using ibuprofen Left Ankle Pain Score (Numeric/FACES): 8 - Related Data Allergies Allergy/AdvReac Type Severity Reaction Status Date / Time codeine Allergy Unknown Hives Verified 02/12/18 07:44 erythromycin base Allergy Unknown Cannot Verified 02/12/18 07:44 [Erythromycin Base] Remember Penicillins Allergy Unknown Cannot Verified 02/12/18 07:44 Remember Sulfa (Sulfonamide Allergy Unknown Blisters Verified 02/12/18 07:44 Antibiotics) Home Meds: Home Meds Cyanocobalamin (Vitamin B-12) [Vitamin B-12] 1,000 mcg IM ASDIRECTED 03/30/13 [ History] Cyanocobalamin (Vitamin B-12) [Vitamin B-12] 2,000 mcg PO DAILY 03/30/13 [ History] Ferrous Fumarate [Iron] 325 mg PO TID 03/30/13 [History] Multivitamin [Multivitamins] 2 each PO DAILY 03/30/13 [History] Vitamin B Complex [Vitamin B-100 Complex] 2 tab PO DAILY 03/30/13 [History] Calcium Carbonate [Calcium] 600 mg PO DAILY 08/23/13 [History] Baclofen 10 mg PO TID PRN 12/01/13 [History] traZODone 25 mg PO BEDTIME 02/25/17 [History] Citalopram [Citalopram HBr] 20 mg PO DAILY 06/21/17 [History] LORazepam 1 mg PO TID 06/21/17 [History] Nicotine [Nicotine Patch] 1 patch TD DAILY 06/21/17 [History] Ibuprofen [Motrin] 800 mg PO BID PRN 07/02/17 [History] Hydrocodone/Acetaminophen [Hydrocodon-Acetaminophen 5-325] 1 each PO TID PRN # 10 tablet 02/12/18 [Rx] Past Medical History HEENT History: Reports: Impaired Vision Gastrointestinal History: Reports: Bowel Obstruction, Cholelithiasis, GERD Other Gastrointestinal History: chronic abdinal pain 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: , 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) Musculoskeletal History: Reports: Back Pain, Chronic Neurological History: Reports: Concussion, Migraines Psychiatric History: Reports: ADD, Anxiety, Depression, Panic Attack Hematologic History: Reports: Anemia, B12 Deficiency, Iron Deficiency Oncologic (Cancer) History: Reports: 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) Other Oncologic History: 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 - Infectious Disease History Infectious Disease History: Reports: Chicken Pox - Past Surgical History Head Surgeries/Procedures: Reports: None HEENT Surgical History: Reports: Tonsillectomy GI Surgical History: Reports: Bariatric Procedure, Cholecystectomy, Colon, EGD, Hernia, Abdominal, Small Bowel Female Surgical History: Reports: Section, Tubal Ligation Neurological Surgical History: Reports: None Musculoskeletal Surgical History: Reports: Carpal Tunnel, 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) Other Musculoskeletal Surgeries/Procedures:: left ankle surgery Oncologic Surgical History: Reports: None Dermatological Surgical History: Reports: None Social & Family History - Family History Cardiac: Reports: Heart Failure, High Cholesterol, Hypertension Respiratory: Reports: 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) Other Respiratory Family Hisory: Emphasema Musculoskeletal: Reports: Arthritis Neurological: Reports: Alzheimers Disease Psychiatric: Reports: None Endocrine/Metabolic: Reports: Diabetes, Type I, Obesity/MBI 30+ Oncologic: Reports: Colon, Skin - Tobacco Use Smoking Status *Q: Current Some Day Smoker Years of Tobacco use: 7 Packs/Tins Daily: 0.1 Used Tobacco, but Quit: No - Caffeine Use Caffeine Use: Reports: Coffee, Soda - Recreational Drug Use Recreational Drug Use: No Review of Systems - Review of Systems Review Of Systems: See Below Constitutional: Reports: No Symptoms GI/Abdominal: Reports: Nausea Musculoskeletal: Reports: Joint Pain (Ankle pain left) ED EXAM, GENERAL - Physical Exam Exam: See Below Free Text/Narrative:: Examination of the left ankle I do appreciate some edema around the lateral malleolus there is no erythema noted she is tender to the touch with any movement whatsoever pedal pulse is +2 sensation is intact Exam Limited By: No Limitations General Appearance: Alert, Mild Distress Course - Vital Signs Last Recorded V/S: Last Vital Signs Temp 97 F 02/12/18 07:48 Pulse 95 02/12/18 07:48 Resp 16 02/12/18 07:48 BP 122/72 02/12/18 07:48 Pulse Ox 99 02/12/18 07:48 - Orders/Labs/Meds Meds: Medications Discontinued Medications Generic Name Dose Route Start Last Admin Trade Name Freq PRN Reason Stop Dose Admin Ketorolac Tromethamine 30 mg 02/12/18 08:02 02/12/18 08:12 Toradol IM 02/12/18 08:03 30 mg ONETIME ONE Administration Ondansetron HCl 4 mg 02/12/18 08:02 02/12/18 08:13 Zofran Odt PO 02/12/18 08:03 4 mg ONETIME ONE Administration Departure - Departure Time of Disposition: 09:10 Disposition: Home, Self-Care 01 Condition: Good Clinical Impression: Left ankle sprain Qualifiers: Encounter type: initial encounter Involved ligament of ankle: unspecified ligament Qualified Code(s): S93.402A - Sprain of unspecified ligament of left ankle, initial encounter - Discharge Information Prescriptions: Hydrocodone/Acetaminophen [Hydrocodon-Acetaminophen 5-325] 1 each PO TID PRN # 10 tablet PRN Reason: Pain Referrals: Maikol Way MD [Primary Care Provider] - Forms: ED Department Discharge Additional Instructions: Continue to use crutches and your walking boot, use ibuprofen for baseline pain control, use hydrocodone for breakthrough pain, please keep your follow-up appointment with orthopedic surgery - Assessment/Plan Plan: Assessment Acuity = acute Site and laterality = left ankle sprain Etiology = secondary to twisting injury Manifestations = pain Location of injury = Home Lab values = x-ray shows no acute fracture Plan She received minimal relief from the Toradol injection she'll be placed in a boot Stephan has crutches prescription written for hydrocodone 5/325 one tab by mouth 3 times a day when necessary total #10 she'll follow-up with her orthopedic surgeon on Sunday this week This note was dictated using [employer] voice recognition software please call with any questions on syntax or grammar.
--- NOTE | 2018-02-12 08:45 | CR ---
Ankle Min 3V Lt CLINICAL HISTORY: Ankle pain, twisted FINDINGS: Patient has had previous open reduction of a distal tib-fib fracture. There are fixation pl ates and screws. Bones appear osteopenic. There is some osteophytic change in the tibiotalar and subt alar joints Impression: Previous trimalleolar fracture with open reduction No new fracture seen
== END 2018-02-12 09:15 | disposition home or self-care (01) ==
LOC: JP.ED 07:31
DX: S93.402A Sprain of unspecified ligament of left ankle, initial encounter (principal); F17.210 Nicotine dependence, cigarettes, uncomplicated; Z79.899 Other long term (current) drug therapy; Z88.5 Allergy status to narcotic agent; Z88.0 Allergy status to penicillin; Z88.2 Allergy status to sulfonamides; Z88.1 Allergy status to other antibiotic agents; X50.1XXA Overexertion from prolonged static or awkward postures, initial encounter
CPT/HCPCS: 73610; 96372; 99284; A9270; J1885

== ENCOUNTER 2018-08-03 05:50 | Inpatient (IN) | payer MEDICAID ==
[2018-08-03] MEDS ORDERED: Ondansetron 4 MG/2 ML SDV IVPUSH ONE ×2 (06:43→08:53)
[2018-08-03] MEDS ORDERED: HYDROmorphone 1 MG/ML Syringe IVPUSH ONE ×3 (06:43→11:05)
--- NOTE | 2018-08-03 06:55 | EDM.PDOC ---
<Brandan Craft - Last Filed: 08/03/18 06:51> ED HPI GENERAL MEDICAL PROBLEM - General Chief Complaint: Abdominal Pain Stated Complaint: YELLOW EYES, STOMACH PAIN Time Seen by Provider: 08/03/18 06:42 Source of Information: Reports: Patient History Limitations: Reports: Other (History low bit difficult to get from this lady because of her level of discomfort.) - History of Present Illness INITIAL COMMENTS - FREE TEXT/NARRATIVE: This lady complains of pain mostly in the upper abdomen is been going on for a couple of days but it's a lot worse since last night. She said it kind of in the epigastric area and radiates around to both sides. She said her eyes seem like they're turning yellow and they hurt in her blurry little bit but she hasn' t been able to see her eye doctor. She's been vomiting for 3 weeks. She said for that she had some flu. Right now today she's just nausea has not vomited today. She had a Kadeem-en-Y bypass about [address] Chan. She had a cholecystectomy 19 years ago and 2 years ago she had resection of an omental abscess. She did say she's had previous bowel obstructions. Upper Abdominal Pain Score (Numeric/FACES): 7 - Related Data Allergies Allergy/AdvReac Type Severity Reaction Status Date / Time codeine Allergy Unknown Hives Verified 08/03/18 06:09 erythromycin base Allergy Unknown Cannot Verified 08/03/18 06:09 [Erythromycin Base] Remember Penicillins Allergy Unknown Cannot Verified 08/03/18 06:09 Remember Sulfa (Sulfonamide Allergy Unknown Blisters Verified 08/03/18 06:09 Antibiotics) Home Meds: Home Meds Cyanocobalamin (Vitamin B-12) [Vitamin B-12] 1,000 mcg IM ASDIRECTED 03/30/13 [ History] Cyanocobalamin (Vitamin B-12) [Vitamin B-12] 2,000 mcg PO DAILY 03/30/13 [ History] Ferrous Fumarate [Iron] 325 mg PO TID 03/30/13 [History] Multivitamin [Multivitamins] 2 each PO DAILY 03/30/13 [History] Vitamin B Complex [Vitamin B-100 Complex] 2 tab PO DAILY 03/30/13 [History] Calcium Carbonate [Calcium] 600 mg PO DAILY 08/23/13 [History] Citalopram [Citalopram HBr] 20 mg PO DAILY 06/21/17 [History] LORazepam 1 mg PO TID 06/21/17 [History] Ibuprofen [Motrin] 800 mg PO BID PRN 07/02/17 [History] Past Medical History HEENT History: Reports: Impaired Vision Gastrointestinal History: Reports: Bowel Obstruction, Cholelithiasis, GERD Other Gastrointestinal History: chronic abdinal pain 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: Musculoskeletal History: Reports: Back Pain, Chronic Neurological History: Reports: Concussion, Migraines Psychiatric History: Reports: ADD, Anxiety, Depression, Panic Attack Hematologic History: Reports: Anemia, B12 Deficiency, Iron Deficiency Oncologic (Cancer) History: Reports: 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) Other Oncologic History: 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 - Infectious Disease History Infectious Disease History: Reports: Chicken Pox - Past Surgical History Head Surgeries/Procedures: Reports: None HEENT Surgical History: Reports: Tonsillectomy GI Surgical History: Reports: Bariatric Procedure, Cholecystectomy, Colon, EGD, Hernia, Abdominal, Small Bowel Female Surgical History: Reports: Section, Tubal Ligation Neurological Surgical History: Reports: None Musculoskeletal Surgical History: Reports: Carpal Tunnel, 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) Other Musculoskeletal Surgeries/Procedures:: left ankle surgery Oncologic Surgical History: Reports: None Social & Family History - Family History Cardiac: Reports: Heart Failure, High Cholesterol, Hypertension Respiratory: Reports: 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) Other Respiratory Family Hisory: Emphasema Musculoskeletal: Reports: Arthritis Neurological: Reports: Alzheimers Disease Psychiatric: Reports: None Endocrine/Metabolic: Reports: Diabetes, Type I, Obesity/MBI 30+ Oncologic: Reports: Colon, Skin - Tobacco Use Smoking Status *Q: Former Smoker Years of Tobacco use: 6 Packs/Tins Daily: 1 Used Tobacco, but Quit: Yes Month/Year Tobacco Last Used: Second Hand Smoke Exposure: No - Caffeine Use Caffeine Use: Reports: Coffee, Energy Drinks - Alcohol Use Days Per Week of Alcohol Use: 2 Number of Drinks Per Day: 1 Total Drinks Per Week: 2 - Recreational Drug Use Recreational Drug Use: No ED ROS GENERAL - Review of Systems Review Of Systems: See Below Constitutional: Reports: No Symptoms HEENT: Reports: Other Respiratory: Reports: No Symptoms (thanks her eyes are turning yellow) Cardiovascular: Reports: No Symptoms Endocrine: Reports: No Symptoms GI/Abdominal: Reports: Abdominal Pain, Nausea, Vomiting : Reports: No Symptoms Musculoskeletal: Reports: No Symptoms Skin: Denies: Change in Color Neurological: Reports: No Symptoms ED EXAM, GI/ABD - Physical Exam Exam: See Below Exam Limited By: No Limitations General Appearance: Alert, WD/WN, Moderate Distress Eyes: Bilateral: Normal Appearance (No obvious scleral icterus) Throat/Mouth: Normal Oropharynx Head: Atraumatic Neck: Normal Inspection Respiratory/Chest: Lungs Clear Cardiovascular: Regular Rate, Rhythm, No Murmur GI/Abdominal Exam: Other (Hypoactive bowel sounds area and she he seems to be diffusely tender. It seems like she is tender everywhere and this might be exaggerated sweats an unreliable exam. Exam should be repeated after a little bit of analgesia) Extremities: Normal Inspection Neurological: Alert, Oriented, Normal Cognition Psychiatric: Normal Affect Skin Exam: Warm, Dry Course - Vital Signs Last Recorded V/S: Last Vital Signs Temp 96.7 F 08/03/18 15:16 Pulse 93 08/03/18 11:37 Resp 16 08/03/18 15:16 BP 131/82 08/03/18 15:16 Pulse Ox 97 08/03/18 15:16 - Orders/Labs/Meds Orders: Active Orders 24 hr Category Date Time Status Sodium Chloride 0.9% [Saline Flush] Med 08/03/18 06:43 Active 10 ml FLUSH ASDIRECTED PRN Saline Lock Insert [OM.PC] Urgent Oth 08/03/18 06:43 Ordered Medication Orders Acetaminophen (Tylenol) 650 mg PO Q4H PRN PRN Reason: Pain (Mild 1-3)/fever Hydrocodone Bitart/Acetaminophen ([place] 325-5 Mg) 1 tab PO Q4H PRN PRN Reason: Pain (moderate 4-6) Citalopram Hydrobromide (Celexa) 20 mg PO DAILY JESS Cyanocobalamin (Vitamin B12) 2,000 mcg PO DAILY JESS Diphenhydramine HCl (Benadryl) 25 mg PO Q4H PRN PRN Reason: Itching Last Admin: 08/03/18 17:11 Dose: 25 mg Hydromorphone HCl (Dilaudid) 1 mg IV Q2H PRN PRN Reason: SEVERE PAIN (7-10) Last Admin: 08/03/18 17:11 Dose: 1 mg Admin: 08/03/18 14:19 Dose: 1 mg Multivitamins/Minerals 10 ml/Thiamine HCl 100 mg/ Folic Acid 1 mg/ Magnesium Sulfate 3 gm/ Sodium Chloride 1,017.2 mls @ 200 mls/hr IV ONETIME ONE Stop: 08/03/18 17:35 Last Admin: 08/03/18 13:41 Dose: 200 mls/hr Dextrose/Lactated Ringer's (Dextrose 5%-Lactated Ringers) 1,000 mls @ 100 mls/ hr IV ASDIRECTED JESS Lorazepam (Ativan) 1 mg PO TID PRN PRN Reason: Anxiety Lorazepam (Ativan) 1 mg IVPUSH Q4H PRN PRN Reason: Nausea/Vomiting Ondansetron HCl (Zofran Odt) 4 mg PO Q6H PRN PRN Reason: Nausea able to take PO Ondansetron HCl (Zofran) 4 mg IV Q6H PRN PRN Reason: Nausea/Vomiting Last Admin: 08/03/18 12:46 Dose: 4 mg Sodium Chloride (Saline Flush) 10 ml FLUSH ASDIRECTED PRN PRN Reason: Keep Vein Open Last Admin: 08/03/18 07:03 Dose: 10 ml Admin: 08/03/18 06:59 Dose: 10 ml Admin: 08/03/18 06:57 Dose: 10 ml Vitamin B Complex (Vitamin B Complex) 2 each PO DAILY [facility] Labs: Laboratory Tests 08/03/18 08/03/18 08/03/18 Range/Units 06:58 06:58 06:58 WBC 4.6 (4.5-11.0) K/uL RBC 4.29 (3.30-5.50) M/uL Hgb 13.4 (12.0-15.0) g/dL Hct 39.0 (36.0-48.0) % MCV 91 (80-98) fL MCH 31 (27-31) pg MCHC 34 (32-36) % Plt Count 128 L (150-400) K/uL Neut % (Auto) 48 (36-66) % Lymph % (Auto) 41 (24-44) % [place] % (Auto) 10 H (2-6) % Eos % (Auto) 0 L (2-4) % Baso % (Auto) 0 (0-1) % Sodium (140-148) mmol/L Potassium (3.6-5.2) mmol/L Chloride (100-108) mmol/L Carbon Dioxide (21-32) mmol/L Anion Gap (5.0-14.0) mmol/L BUN (7-18) mg/dL Creatinine (0.6-1.0) mg/dL Est Cr Clr Drug Dosing mL/min Estimated GFR (MDRD) (>60) Glucose (74-106) mg/dL Lactic Acid 2.4 H (0.4-2.0) mmol/L Calcium (8.5-10.1) mg/dL Total Bilirubin (0.2-1.0) mg/dL AST (15-37) U/L ALT (12-78) U/L Alkaline Phosphatase (46-116) U/L Total Protein (6.4-8.2) g/dL Albumin (3.4-5.0) g/dL Globulin (2.3-3.5) g/dL Albumin/Globulin Ratio (1.2-2.2) Amylase 16 L (25-115) U/L Lipase 216 (73-393) U/L Monoscreen (NEGATIVE) 08/03/18 08/03/18 Range/Units 06:58 11:01 WBC (4.5-11.0) K/uL RBC (3.30-5.50) M/uL Hgb (12.0-15.0) g/dL Hct (36.0-48.0) % MCV (80-98) fL MCH (27-31) pg MCHC (32-36) % Plt Count (150-400) K/uL Neut % (Auto) (36-66) % Lymph % (Auto) (24-44) % [place] % (Auto) (2-6) % Eos % (Auto) (2-4) % Baso % (Auto) (0-1) % Sodium 136 L (140-148) mmol/L Potassium 3.1 L (3.6-5.2) mmol/L Chloride 99 L (100-108) mmol/L Carbon Dioxide 24 (21-32) mmol/L Anion Gap 16.1 H (5.0-14.0) mmol/L BUN 13 (7-18) mg/dL Creatinine 1.1 H (0.6-1.0) mg/dL Est Cr Clr Drug Dosing 52.33 mL/min Estimated GFR (MDRD) 56 L (>60) Glucose 97 (74-106) mg/dL Lactic Acid (0.4-2.0) mmol/L Calcium 8.0 L (8.5-10.1) mg/dL Total Bilirubin 1.9 H D (0.2-1.0) mg/dL AST 160 H D (15-37) U/L ALT 238 H (12-78) U/L Alkaline Phosphatase 205 H D (46-116) U/L Total Protein 6.1 L (6.4-8.2) g/dL Albumin 2.7 L (3.4-5.0) g/dL Globulin 3.4 (2.3-3.5) g/dL Albumin/Globulin Ratio 0.8 L (1.2-2.2) Amylase (25-115) U/L Lipase (73-393) U/L Monoscreen Negative (NEGATIVE) Meds: Medications Generic Name Dose Route Start Last Admin Trade Name Freq PRN Reason Stop Dose Admin Acetaminophen 650 mg 08/03/18 11:24 Tylenol PO Q4H PRN Pain (Mild 1-3)/fever Hydrocodone Bitart/Acetaminophen 1 tab 08/03/18 11:24 Mosca 325-5 Mg PO Q4H PRN Pain (moderate 4-6) Citalopram Hydrobromide 20 mg 08/04/18 09:00 Celexa PO DAILY JESS Cyanocobalamin 2,000 mcg 08/04/18 09:00 Vitamin B12 PO DAILY JESS Diphenhydramine HCl 25 mg 08/03/18 17:00 08/03/18 17:11 Benadryl PO 25 mg Q4H PRN Administration Itching Hydromorphone HCl 1 mg 08/03/18 11:32 08/03/18 17:11 Dilaudid IV 1 mg Q2H PRN Administration SEVERE PAIN (7-10) Multivitamins/Minerals 10 ml/ 1,017.2 mls @ 200 mls/hr 08/03/18 12:30 13:41 Thiamine HCl 100 mg/ Folic IV 08/03/18 17:35 200 mls/hr Acid 1 mg/ Magnesium Sulfate 3 ONETIME ONE Administration gm/ Sodium Chloride Dextrose/Lactated Ringer's 1,000 mls @ 100 mls/hr 08/03/18 11:24 Dextrose 5%-Lactated Ringers IV ASDIRECTED JESS Lorazepam 1 mg 08/03/18 11:24 Ativan PO TID PRN Anxiety Lorazepam 1 mg 08/03/18 11:24 Ativan IVPUSH Q4H PRN Nausea/Vomiting Ondansetron HCl 4 mg 08/03/18 11:24 Zofran Odt PO Q6H PRN Nausea able to take PO Ondansetron HCl 4 mg 08/03/18 11:24 08/03/18 12:46 Zofran IV 4 mg Q6H PRN Administration Nausea/Vomiting Sodium Chloride 10 ml 08/03/18 06:43 08/03/18 07:03 Saline Flush FLUSH 10 ml ASDIRECTED PRN Administration Keep Vein Open Vitamin B Complex 2 each 08/04/18 09:00 Vitamin B Complex PO DAILY JESS Discontinued Medications Generic Name Dose Route Start Last Admin Trade Name Freq PRN Reason Stop Dose Admin Hydromorphone HCl 1 mg 08/03/18 06:43 08/03/18 06:59 Dilaudid IVPUSH 08/03/18 06:44 1 mg ONETIME ONE Administration Hydromorphone HCl 1 mg 08/03/18 08:53 08/03/18 09:09 Dilaudid IVPUSH 08/03/18 08:54 1 mg ONETIME ONE Administration Hydromorphone HCl 1 mg 08/03/18 11:05 08/03/18 11:55 Dilaudid IVPUSH 08/03/18 11:06 1 mg ONETIME ONE Administration Sodium Chloride 1,000 mls @ 1,000 mls/hr 08/03/18 07:45 08/03/18 07:41 Normal Saline IV 1,000 mls/hr ASDIRECTED JESS Administration Sodium Chloride 70 mls @ 3 mls/sec 08/03/18 08:31 08/03/18 08:44 Normal Saline IV 08/03/18 08:32 3 mls/sec ONETIME ONE Administration Sodium Chloride 1,000 mls @ 250 mls/hr 08/03/18 09:00 08/03/18 09:07 Normal Saline IV 250 mls/hr ASDIRECTED JESS Administration Potassium Chloride 20 meq/ 112 mls @ 56 mls/hr 08/03/18 12:00 08/03/18 14:21 Lidocaine HCl 2 ml/ Sodium IV 08/03/18 15:59 56 mls/hr Chloride Q2H JESS Administration Iopamidol 93 ml 08/03/18 08:31 08/03/18 08:44 Isovue-300 (61%) IV 93 ml . DIRECTED PRN Administration RADIOLOGY EXAM Lorazepam 1 mg 08/03/18 11:05 08/03/18 11:55 Ativan IVPUSH 08/03/18 11:06 1 mg ONETIME ONE Administration Ondansetron HCl 4 mg 08/03/18 06:43 08/03/18 06:57 Zofran IVPUSH 08/03/18 06:44 4 mg ONETIME ONE Administration Ondansetron HCl 4 mg 08/03/18 08:53 08/03/18 09:08 Zofran IVPUSH 08/03/18 08:54 4 mg ONETIME ONE Administration Pantoprazole Sodium 40 mg 08/03/18 12:00 08/03/18 11:56 Protonix Iv IV 08/03/18 12:01 40 mg ONETIME ONE Administration Sodium Chloride 10 ml 08/03/18 08:31 08/03/18 08:44 Saline Flush FLUSH 10 ml ONETIME PRN Administration PER RADIOLOGY PROTOCOL - Re-Assessments/Exams Free Text/Narrative Re-Assessment/Exam: 08/03/18 06:54 She received Dilaudid 1 mg and Zofran 4 mg IV. He'll be turning her over to Dr Liu and just a few minutes. He can decide whether or not she needs a CT of the abdomen. Departure - Departure Disposition: Admitted As Inpatient 66 Clinical Impression: Hepatitis Abdominal pain Qualifiers: Abdominal location: right upper quadrant Qualified Code(s): R10.11 - Right upper quadrant pain - Discharge Information <Aneesh Liu - Last Filed: 08/03/18 17:15> Course - Re-Assessments/Exams Free Text/Narrative Re-Assessment/Exam: 08/03/18 07:44 Patient care turned over from Dr. Craft pending lab and response to initial medications. I reinterviewed and examined the patient is second time. She is concerned that she feels like she is getting jaundiced in her eyes, she does not look jaundiced but her bilirubin did return elevated at 1.9 with diffuse elevation of LFTs. Her pain improved after the medications but was still present , especially across her upper abdomen. Normal saline IV was initiated with a 1 L bolus which will be followed by contrast enhanced CT scan of the abdomen and pelvis. 08/03/18 10:02 IMPRESSION: 1. Diffuse hepatic fatty infiltration new compared to the prior study. 2. Surgically absent gallbladder. Postsurgical change from gastric bypass surgery. 3. No evidence for bowel obstruction or ileus. Normal appendix. Discussed above results with the hospitalist service, Dr. Veras will see the patient to assess for possible admission versus transfer. Departure - Departure Time of Disposition: 11:24 Condition: Fair
[2018-08-03] MEDS: Sodium Chloride 0.9% 10 ML Syringe FLUSH PRN ×3 (06:57→07:03)
[2018-08-03] MEDS ORDERED: Sodium Chloride 0.9% 1,000 ML IV SCH ×2 (07:45→09:00)
[2018-08-03] MEDS ORDERED: Sodium Chloride 0.9% 10 ML Syringe FLUSH PRN (08:31)
[2018-08-03] MEDS ORDERED: Iopamidol 612 MG/ML 100 ML Bottle IV PRN (08:31)
--- NOTE | 2018-08-03 09:46 | CRLCT ---
INDICATION: 38 year-old female. Abdominal pain. Elevated liver function tests. Elevated bilirubin. Previous gastric bypass and cholecystectomy. TECHNIQUE: Contrast-enhanced abdominal pelvic CT. 93 cc nonionic Isovue-300 administered. COMPARISON: July 27, 2017. FINDINGS: Clear included lung bases. No pleural or pericardial effusions. When compared to the previous study the patient has developed a diffusely decreased density of the liver compatible with fairly significant hepatic fatty infiltration. Surgically absent gallbladder. Postsurgical change from gastric bypass surgery. No biliary ductal dilatation. No splenomegaly. Normal-appearing pancreas. Normal adrenal glands. No hydronephrosis, stone, or solid renal mass. There are 2 small stable left renal cysts the larger of which measures 1.5 cm on image 35 series 2. Normal abdominal aorta, iliac arteries, and inferior vena cava. Urinary bladder although incompletely distended is normal. The uterus and both adnexa are within normal limits. Multiple calcified pelvic phleboliths. No urinary bladder calculi. Normal appendix, image 92 series 2. There is no evidence for small or large bowel obstruction or ileus and no ascites or lymphadenopathy. Both inguinal regions are within normal limits. The included skeleton is unremarkable. IMPRESSION: 1. Diffuse hepatic fatty infiltration new compared to the prior study. 2. Surgically absent gallbladder. Postsurgical change from gastric bypass surgery. 3. No evidence for bowel obstruction or ileus. Normal appendix. Please note that all CT scans at this facility use dose modulation, iterative reconstruction, and/or weight-based dosing when appropriate to reduce radiation dose to as low as reasonably achievable. Dictated by Flaco Bruce MD @ Aug 03 2018 9:38AM Signed by Dr. Flaco Bruce @ Aug 03 2018 9:44AM
[2018-08-03] MEDS ORDERED: LORazepam 2 MG/ML SDV IVPUSH ONE (11:05)
--- NOTE | 2018-08-03 11:15 | PCM.HP ---
H&P History of Present Illness - General Date of Service: 08/03/18 Admit Problem/Dx: Admission Diagnosis/Problem Admission Diagnosis/Problem Abdominal pain Source of Information: Patient, Provider History Limitations: Reports: No Limitations - History of Present Illness Initial Comments - Free Text/Narative: Mya presents to the ER with three days of progressive RUQ pain. She describes achy, twisting pain below the rib cage with some shooting pain. It was mild a few days ago but has progressively become severe. Worse with movement. No help from APAP or ibuprofen. Never had pain like this before. The pain does radiate to her back. She has had diarrhea for 3 weeks. No blood in her stool. She has been nauseated for weeks but worse the past few days. Very little to eat or drink for the past three weeks. Mild sore throat a couple weeks ago but none now. No fevers. Multiple contacts with strep throat and one who also had vomiting and diarrhea a couple weeks ago. Significant fatigue. No rash or lymphadenopathy. Work up in the ER revealed bilirubin of 1.9 and AST and ALT of [address] abd revealed diffuse fatty infiltration of the liver but no mass or abscess. No other acute findings in the abdomen. She has required two doses of pain meds and two doses of anti-emetics. She is receiving fluids. She is very uncomfortable and will be admitted for symptom management and expedited work up. Upper Abdominal Pain Score (Numeric/FACES): 6 - Related Data Allergies/Adverse Reactions: Allergies Allergy/AdvReac Type Severity Reaction Status Date / Time codeine Allergy Unknown Hives Verified 08/03/18 06:09 erythromycin base Allergy Unknown Cannot Verified 08/03/18 06:09 [Erythromycin Base] Remember Penicillins Allergy Unknown Cannot Verified 08/03/18 06:09 Remember Sulfa (Sulfonamide Allergy Unknown Blisters Verified 08/03/18 06:09 Antibiotics) Home Medications: Home Meds Cyanocobalamin (Vitamin B-12) [Vitamin B-12] 1,000 mcg IM ASDIRECTED 03/30/13 [ History] Cyanocobalamin (Vitamin B-12) [Vitamin B-12] 2,000 mcg PO DAILY 03/30/13 [ History] Ferrous Fumarate [Iron] 325 mg PO TID 03/30/13 [History] Multivitamin [Multivitamins] 2 each PO DAILY 03/30/13 [History] Vitamin B Complex [Vitamin B-100 Complex] 2 tab PO DAILY 03/30/13 [History] Calcium Carbonate [Calcium] 600 mg PO DAILY 08/23/13 [History] Citalopram [Citalopram HBr] 20 mg PO DAILY 06/21/17 [History] LORazepam 1 mg PO TID 06/21/17 [History] Ibuprofen [Motrin] 800 mg PO BID PRN 07/02/17 [History] Past Medical History HEENT History: Reports: Impaired Vision Gastrointestinal History: Reports: Bowel Obstruction, Cholelithiasis, GERD Other Gastrointestinal History: chronic abdinal pain Genitourinary History: Reports: None [employer] History: Reports: Musculoskeletal History: Reports: Back Pain, Chronic Neurological History: Reports: Concussion, Migraines Psychiatric History: Reports: ADD, Anxiety, Depression, Panic Attack Hematologic History: Reports: Anemia, B12 Deficiency, Iron Deficiency Oncologic (Cancer) History: Reports: 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) Other Oncologic History: 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 - Infectious Disease History Infectious Disease History: Reports: Chicken Pox - Past Surgical History Head Surgeries/Procedures: Reports: None HEENT Surgical History: Reports: Tonsillectomy GI Surgical History: Reports: Bariatric Procedure, Cholecystectomy, Colon, EGD, Hernia, Abdominal, Small Bowel Female Surgical History: Reports: Section, Tubal Ligation Neurological Surgical History: Reports: None Musculoskeletal Surgical History: Reports: Carpal Tunnel, 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) Other Musculoskeletal Surgeries/Procedures:: left ankle surgery Oncologic Surgical History: Reports: None Social & Family History - Family History Cardiac: Reports: Heart Failure, High Cholesterol, Hypertension Respiratory: Reports: 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) Other Respiratory Family Hisory: Emphasema Musculoskeletal: Reports: Arthritis Neurological: Reports: Alzheimers Disease Psychiatric: Reports: None Endocrine/Metabolic: Reports: Diabetes, Type I, Obesity/MBI 30+ Oncologic: Reports: Colon, Skin - Tobacco Use Smoking Status *Q: Former Smoker Years of Tobacco use: 6 Packs/Tins Daily: 1 Used Tobacco, but Quit: Yes Month/Year Tobacco Last Used: Second Hand Smoke Exposure: No - Caffeine Use Caffeine Use: Reports: Coffee, Energy Drinks - Alcohol Use Days Per Week of Alcohol Use: 2 Number of Drinks Per Day: 1 Total Drinks Per Week: 2 - Recreational Drug Use Recreational Drug Use: No H&P Review of Systems - Review of Systems: Review Of Systems: See Below Free Text/Narrative: A complete 12 point review of systems was obtained. Pertinent positives and negatives are noted in the history of present illness. All other systems were reviewed and were negative except as noted. Exam - Exam Exam: See Below - Vital Signs Vital Signs: Last Vital Signs Temp 36.7 C 08/03/18 06:20 Pulse 94 08/03/18 10:05 Resp 16 08/03/18 10:05 BP 118/81 08/03/18 10:05 Pulse Ox 97 08/03/18 10:05 Weight: 61.7 kg - Exam Quality Assessment: No: Supplemental Oxygen General: Alert, Oriented, Cooperative, Mild Distress HEENT: Conjunctiva Clear, Scleral Icterus. No: Mucosa Moist & [place] (dry) Neck: Supple, Trachea Midline. No: Lymphadenopathy Lungs: Clear to Auscultation, Normal Respiratory Effort Cardiovascular: Regular Rate, Regular Rhythm, Other (hyperdynamic ) GI/Abdominal Exam: Normal Bowel Sounds, Soft, No Distention, Tender (Moderate diffuse and severe right upper quadrant) Back Exam: Full Range of Motion Extremities: No Pedal Edema. No: Increased Warmth Peripheral Pulses: 2+: Dorsalis Pedis (L), Dorsalis Pedis (R) Skin: Warm, Dry, Other (No obvious jaundice) Neuro Extensive - Mental Status: Alert, Oriented x3, Nl Response to Commands Neuro Extensive - Motor, Sensory, Reflexes: No: Abnormal Reflexes, Abnormal Motor, Tremor Psychiatric: Alert, Normal Affect - Patient Data Lab Results Last 24 hrs: Laboratory Results - last 24 hr 08/03/18 08/03/18 08/03/18 Range/Units 06:58 06:58 06:58 WBC 4.6 (4.5-11.0) K/uL RBC 4.29 (3.30-5.50) M/uL Hgb 13.4 (12.0-15.0) g/dL Hct 39.0 (36.0-48.0) % MCV 91 (80-98) fL MCH 31 (27-31) pg MCHC 34 (32-36) % Plt Count 128 L (150-400) K/uL Neut % (Auto) 48 (36-66) % Lymph % (Auto) 41 (24-44) % [place] % (Auto) 10 H (2-6) % Eos % (Auto) 0 L (2-4) % Baso % (Auto) 0 (0-1) % Sodium (140-148) mmol/L Potassium (3.6-5.2) mmol/L Chloride (100-108) mmol/L Carbon Dioxide (21-32) mmol/L Anion Gap (5.0-14.0) mmol/L BUN (7-18) mg/dL Creatinine (0.6-1.0) mg/dL Est Cr Clr Drug Dosing mL/min Estimated GFR (MDRD) (>60) Glucose (74-106) mg/dL Lactic Acid 2.4 H (0.4-2.0) mmol/L Calcium (8.5-10.1) mg/dL Total Bilirubin (0.2-1.0) mg/dL AST (15-37) U/L ALT (12-78) U/L Alkaline Phosphatase (46-116) U/L Total Protein (6.4-8.2) g/dL Albumin (3.4-5.0) g/dL Globulin (2.3-3.5) g/dL Albumin/Globulin Ratio (1.2-2.2) Amylase 16 L (25-115) U/L Lipase 216 (73-393) U/L 08/03/18 Range/Units 06:58 WBC (4.5-11.0) K/uL RBC (3.30-5.50) M/uL Hgb (12.0-15.0) g/dL Hct (36.0-48.0) % MCV (80-98) fL MCH (27-31) pg MCHC (32-36) % Plt Count (150-400) K/uL Neut % (Auto) (36-66) % Lymph % (Auto) (24-44) % [place] % (Auto) (2-6) % Eos % (Auto) (2-4) % Baso % (Auto) (0-1) % Sodium 136 L (140-148) mmol/L Potassium 3.1 L (3.6-5.2) mmol/L Chloride 99 L (100-108) mmol/L Carbon Dioxide 24 (21-32) mmol/L Anion Gap 16.1 H (5.0-14.0) mmol/L BUN 13 (7-18) mg/dL Creatinine 1.1 H (0.6-1.0) mg/dL Est Cr Clr Drug Dosing 52.33 mL/min Estimated GFR (MDRD) 56 L (>60) Glucose 97 (74-106) mg/dL Lactic Acid (0.4-2.0) mmol/L Calcium 8.0 L (8.5-10.1) mg/dL Total Bilirubin 1.9 H D (0.2-1.0) mg/dL AST 160 H D (15-37) U/L ALT 238 H (12-78) U/L Alkaline Phosphatase 205 H D (46-116) U/L Total Protein 6.1 L (6.4-8.2) g/dL Albumin 2.7 L (3.4-5.0) g/dL Globulin 3.4 (2.3-3.5) g/dL Albumin/Globulin Ratio 0.8 L (1.2-2.2) Amylase (25-115) U/L Lipase (73-393) U/L Result Diagrams: 08/03/18 06:58 08/03/18 06:58 Imaging Impressions Last 24 hrs: CT scan of the abdomen and pelvis - images personally reviewed - there is diffuse enlargement with fatty infiltration involving the liver. No ascites. No abscess or mass in the liver. No other acute findings in the abdomen or pelvis. Postsurgical changes from previous gastric bypass and cholecystectomy are noted. *Q Meaningful Use (ADM) - VTE Risk Assess *Q Each Risk Factor Represents 1 Point: None Total Score 1 Point Risk Factors: 0 Each Risk Factor Represents 2 Points: None Total Score 2 Point Risk Factors: 0 Each Risk Factor Represents 3 Points: None Total Score 3 Point Risk Factors: 0 Each Risk Factor Represents 5 Points: None Total Score 5 Point Risk Factors: 0 Venous Thromboembolism Risk Factor Score *Q: 0 - Problem List (1) Hepatitis SNOMED Code(s): 925529217 ICD Code: K75.9 - INFLAMMATORY LIVER DISEASE, UNSPECIFIED Status: Acute Current Visit: Yes (2) Abdominal pain SNOMED Code(s): 48852167 ICD Code: R10.9 - UNSPECIFIED ABDOMINAL PAIN Status: Acute Current Visit : Yes Qualifiers: Abdominal location: right upper quadrant Qualified Code(s): R10.11 - Right upper quadrant pain (3) Hypokalemia SNOMED Code(s): 03177590 ICD Code: E87.6 - HYPOKALEMIA Status: Acute Current Visit: Yes (4) Bariatric surgery status SNOMED Code(s): 010669840, 608055912, 875384993 ICD Code: Z98.84 - BARIATRIC SURGERY STATUS Status: Chronic Current Visit : No Problem List Initiated/Reviewed/Updated: Yes Orders Last 24hrs: Active Orders 24 hr Category Date Time Status Patient Status Manage Transfer [TRANSFER] Routine ADT 08/03/18 11:06 Ordered MONONUCLEOSIS SCREEN [CHEM] Stat Lab 08/03/18 11:01 Ordered UA W/MICROSCOPIC [URIN] Urgent Lab 08/03/18 06:43 Ordered Sodium Chloride 0.9% [Normal Saline] 1,000 ml Med 08/03/18 07:45 Active IV ASDIRECTED Sodium Chloride 0.9% [Normal Saline] 1,000 ml Med 08/03/18 09:00 Active IV ASDIRECTED Sodium Chloride 0.9% [Saline Flush] Med 08/03/18 06:43 Active 10 ml FLUSH ASDIRECTED PRN Sodium Chloride 0.9% [Saline Flush] Med 08/03/18 08:31 Active 10 ml FLUSH ONETIME PRN Saline Lock Insert [OM.PC] Urgent Oth 08/03/18 06:43 Ordered Resuscitation Status Routine Resus Stat 08/03/18 11:08 Ordered Medication Orders Sodium Chloride (Normal Saline) 1,000 mls @ 1,000 mls/hr IV ASDIRECTED JESS Last Admin: 08/03/18 07:41 Dose: 1,000 mls/hr Sodium Chloride (Normal Saline) 1,000 mls @ 250 mls/hr IV ASDIRECTED JESS Last Admin: 08/03/18 09:07 Dose: 250 mls/hr Sodium Chloride (Saline Flush) 10 ml FLUSH ASDIRECTED PRN PRN Reason: Keep Vein Open Last Admin: 08/03/18 07:03 Dose: 10 ml Admin: 08/03/18 06:59 Dose: 10 ml Admin: 08/03/18 06:57 Dose: 10 ml Sodium Chloride (Saline Flush) 10 ml FLUSH ONETIME PRN PRN Reason: PER RADIOLOGY PROTOCOL Last Admin: 08/03/18 08:44 Dose: 10 ml Assessment/Plan Comment:: ASSESSMENT AND PLAN - Acute hepatitis - acute onset of abdominal pain with elevation of bilirubin, AST and ALT in a hepatocellular pattern. CT scan showed diffuse fatty infiltration. Viral infection seems to be the most likely but autoimmune could be considered. She has had sick contacts with strep throat but that seems to be unlikely as a cause. She does not report any alcohol use. She does not use IV drugs and has been vaccinated against hepatitis B. No travel to countries with hepatitis A. Monospot was negative. -IV fluids -Symptomatic management -Repeat labs in the morning -Send labs for viral hepatitis, ERICA, ANCA, EBV serologies, Anti Smooth Muscle AB Hypokalemia - will replace today and recheck in the morning. History of gastric bypass - dehydration from poor intake and diarrhea. -Banana bag -IV fluids after the banana bag Maintenance issues - - DVT prophylaxis - mechanical - GI prophylaxis - one-time dose of IV PPI - Nutrition - clear liquids - Kim catheter - not indicated CODE STATUS - full code Admission justification - This patient will be admitted for inpatient services and is medically appropriate meeting medical necessity for inpatient admission as outlined in my documentation. I reasonably expect the patient will require inpatient services that span a period time over 2 midnights. I reasonably expect this patient to be discharged or transferred within 96 hours [facility] Disposition - I would anticipate discharge home after the hospital stay Primary care physician - Dr Darwin Veras M.D.
[2018-08-03] MEDS ORDERED: Acetaminophen 325 MG Tab PO PRN (11:24)
[2018-08-03] MEDS ORDERED: LORazepam 1 MG Tab PO PRN (11:24)
[2018-08-03] MEDS ORDERED: LORazepam 2 MG/ML SDV IVPUSH PRN (11:24)
[2018-08-03] MEDS ORDERED: Ondansetron 4 MG Tab.DIS PO PRN (11:24)
[2018-08-03] MEDS: Potassium Chloride 20 MEQ, Lidocaine 1% 2 ML in Sodium Chloride 0.9% 100 ML IV SCH ×2 (11:56→14:21)
[2018-08-03] MEDS ORDERED: Pantoprazole 40 MG Vial IV ONE (12:00)
[2018-08-03] MEDS ORDERED: MVI, Adult with Vitamin K 10 ML, Thiamine 100 MG, Folic Acid 1 MG, Magnesium Sulfate 3 ... IV ONE ×5 (12:30)
[2018-08-03] MEDS: Ondansetron 4 MG/2 ML SDV IV PRN (12:46)
[2018-08-03] MEDS: HYDROmorphone 1 MG/ML Syringe IV PRN ×3 (14:19→19:49)
[2018-08-03] MEDS: diphenhydrAMINE 25 MG Cap PO PRN ×2 (17:11→21:17)
[2018-08-03] MEDS: Acetaminophen/HYDROcodone 325-5 MG Tab PO PRN (20:43)
[2018-08-03] MEDS: Dextrose 5%-Lactated Ringers 1,000 ML IV SCH (20:44)
[2018-08-04] MEDS: HYDROmorphone 1 MG/ML Syringe IV PRN ×5 (00:03→20:42)
[2018-08-04] MEDS: Ondansetron 4 MG/2 ML SDV IV PRN (00:08)
[2018-08-04] MEDS: Acetaminophen/HYDROcodone 325-5 MG Tab PO PRN ×5 (01:54→22:02)
[2018-08-04] MEDS: diphenhydrAMINE 25 MG Cap PO PRN ×4 (01:59→22:04)
[2018-08-04] MEDS: Dextrose 5%-Lactated Ringers 1,000 ML IV SCH (05:44)
[2018-08-04] MEDS: Cyanocobalamin (Vitamin B12) 1,000 MCG Tab PO SCH (08:41)
[2018-08-04] MEDS: Vitamin B Complex Tab PO SCH (08:41)
[2018-08-04] MEDS: Citalopram 20 MG Tab PO SCH (08:41)
[2018-08-04] MEDS ORDERED: Vitamin B Complex Tab PO SCH (09:00)
[2018-08-04] MEDS ORDERED: Non-Formulary Medication 1 Each (Cyanocobalamin (Vitamin B-12) [Vitamin B-12] 2,000 MCG) PO SCH (09:00)
--- NOTE | 2018-08-04 10:01 | PCM.PN ---
- General Info Date of Service: 08/04/18 Subjective Update: There are no acute events overnight. Patient has tolerated clear liquids well. She still has some nausea but has not had vomiting. No diarrhea since admission. Still having a fair amount of right upper quadrant pain but it is better today. She has been up and walking around. Bilirubin, AST and ALT have all improved compared to yesterday. Functional Status: Reports: Pain Controlled, Tolerating Diet - Review of Systems General: Denies: Fever Gastrointestinal: Reports: Abdominal Pain - Patient Data Vitals - Most Recent: Last Vital Signs Temp 36.2 C 08/04/18 07:23 Pulse 92 08/04/18 07:23 Resp 16 08/04/18 07:23 BP 123/85 08/04/18 07:23 Pulse Ox 99 08/04/18 07:23 Weight - Most Recent: 61.7 kg I&O - Last 24 Hours: Intake & Output 08/03/18 08/04/18 08/04/18 22:59 06:59 14:59 Intake Total 1080 2981 Output Total 900 700 900 Balance 180 2281 -900 Lab Results Last 24 Hours: Laboratory Results - last 24 hr 08/03/18 08/03/18 08/04/18 Range/Units 11:01 14:28 05:18 WBC 3.4 L (4.5-11.0) K/uL RBC 3.35 (3.30-5.50) M/uL Hgb 10.7 L D (12.0-15.0) g/dL Hct 33.0 L (36.0-48.0) % MCV 99 H (80-98) fL MCH 32 H (27-31) pg MCHC 32 (32-36) % Plt Count 124 L (150-400) K/uL Sodium (140-148) mmol/L Potassium (3.6-5.2) mmol/L Chloride (100-108) mmol/L Carbon Dioxide (21-32) mmol/L Anion Gap (5.0-14.0) mmol/L BUN (7-18) mg/dL Creatinine (0.6-1.0) mg/dL Est Cr Clr Drug Dosing mL/min Estimated GFR (MDRD) (>60) Glucose (74-106) mg/dL Calcium (8.5-10.1) mg/dL Total Bilirubin (0.2-1.0) mg/dL AST (15-37) U/L ALT (12-78) U/L Alkaline Phosphatase (46-116) U/L C-Reactive Protein (0.0-0.3) mg/dL Total Protein (6.4-8.2) g/dL Albumin (3.4-5.0) g/dL Globulin (2.3-3.5) g/dL Albumin/Globulin Ratio (1.2-2.2) Urine Color [place] Urine Appearance Clear Urine pH 6.0 (4.5-8.0) Ur Specific [place] 1.015 (1.008-1.030) Urine Protein Negative (NEGATIVE) mg/dL Urine Glucose (UA) Normal (NEGATIVE) mg/dL Urine Ketones Negative (NEGATIVE) mg/dL Urine Occult Blood Trace (NEGATIVE) Urine Nitrite Negative (NEGATIVE) Urine Bilirubin Negative (NEGATIVE) Urine Urobilinogen Normal (NORMAL) mg/dL Ur Leukocyte Esterase Small (NEGATIVE) Urine RBC 5-10 H (0-5) Urine WBC 5-10 H (0-5) Ur Epithelial Cells Moderate Amorphous Sediment Not seen Urine Bacteria Few Urine Mucus Few Monoscreen Negative (NEGATIVE) 08/04/18 Range/Units 05:18 WBC (4.5-11.0) K/uL RBC (3.30-5.50) M/uL Hgb (12.0-15.0) g/dL Hct (36.0-48.0) % MCV (80-98) fL MCH (27-31) pg MCHC (32-36) % Plt Count (150-400) K/uL Sodium 141 (140-148) mmol/L Potassium 3.7 (3.6-5.2) mmol/L Chloride 108 (100-108) mmol/L Carbon Dioxide 27 (21-32) mmol/L Anion Gap 5.8 (5.0-14.0) mmol/L BUN 5 L D (7-18) mg/dL Creatinine 0.8 (0.6-1.0) mg/dL Est Cr Clr Drug Dosing 71.95 mL/min Estimated GFR (MDRD) > 60 (>60) Glucose 84 (74-106) mg/dL Calcium 6.9 L* (8.5-10.1) mg/dL Total Bilirubin 1.4 H (0.2-1.0) mg/dL AST 154 H (15-37) U/L ALT 173 H (12-78) U/L Alkaline Phosphatase 159 H (46-116) U/L C-Reactive Protein 0.13 (0.0-0.3) mg/dL Total Protein 5.0 L (6.4-8.2) g/dL Albumin 2.1 L (3.4-5.0) g/dL Globulin 2.9 (2.3-3.5) g/dL Albumin/Globulin Ratio 0.7 L (1.2-2.2) Urine Color Urine Appearance Urine pH (4.5-8.0) Ur Specific [place] (1.008-1.030) Urine Protein (NEGATIVE) mg/dL Urine Glucose (UA) (NEGATIVE) mg/dL Urine Ketones (NEGATIVE) mg/dL Urine Occult Blood (NEGATIVE) Urine Nitrite (NEGATIVE) Urine Bilirubin (NEGATIVE) Urine Urobilinogen (NORMAL) mg/dL Ur Leukocyte Esterase (NEGATIVE) Urine RBC (0-5) Urine WBC (0-5) Ur Epithelial Cells Amorphous Sediment Urine Bacteria Urine Mucus Monoscreen (NEGATIVE) Med Orders - Current: Current Medications Acetaminophen (Tylenol) 650 mg PO Q4H PRN PRN Reason: Pain (Mild 1-3)/fever Hydrocodone Bitart/Acetaminophen ([place] 325-5 Mg) 1 tab PO Q4H PRN PRN Reason: Pain (moderate 4-6) Last Admin: 08/04/18 07:34 Dose: 1 tab Citalopram Hydrobromide (Celexa) 20 mg PO DAILY [facility] Last Admin: 08/04/18 08:41 Dose: 20 mg Cyanocobalamin (Vitamin B12) 2,000 mcg PO DAILY [facility] Last Admin: 08/04/18 08:41 Dose: 2,000 mcg Diphenhydramine HCl (Benadryl) 25 mg PO Q4H PRN PRN Reason: Itching Last Admin: 08/04/18 07:34 Dose: 25 mg Hydromorphone HCl (Dilaudid) 1 mg IV Q2H PRN PRN Reason: SEVERE PAIN (7-10) Last Admin: 08/04/18 05:44 Dose: 1 mg Dextrose/Lactated Ringer's (Dextrose 5%-Lactated Ringers) 1,000 mls @ 100 mls/ hr IV ASDIRECTED [facility] Stop: 08/04/18 17:00 Last Admin: 08/04/18 05:44 Dose: 100 mls/hr Lorazepam (Ativan) 1 mg PO TID PRN PRN Reason: Anxiety Lorazepam (Ativan) 1 mg IVPUSH Q4H PRN PRN Reason: Nausea/Vomiting Ondansetron HCl (Zofran Odt) 4 mg PO Q6H PRN PRN Reason: Nausea able to take PO Ondansetron HCl (Zofran) 4 mg IV Q6H PRN PRN Reason: Nausea/Vomiting Last Admin: 08/04/18 00:08 Dose: 4 mg Sodium Chloride (Saline Flush) 10 ml FLUSH ASDIRECTED PRN PRN Reason: Keep Vein Open Last Admin: 08/03/18 07:03 Dose: 10 ml Vitamin B Complex (Vitamin B Complex) 2 each PO DAILY [facility] Last Admin: 08/04/18 08:41 Dose: 2 each Discontinued Medications Hydromorphone HCl (Dilaudid) 1 mg IVPUSH ONETIME ONE Stop: 08/03/18 06:44 Last Admin: 08/03/18 06:59 Dose: 1 mg Hydromorphone HCl (Dilaudid) 1 mg IVPUSH ONETIME ONE Stop: 08/03/18 08:54 Last Admin: 08/03/18 09:09 Dose: 1 mg Hydromorphone HCl (Dilaudid) 1 mg IVPUSH ONETIME ONE Stop: 08/03/18 11:06 Last Admin: 08/03/18 11:55 Dose: 1 mg Sodium Chloride (Normal Saline) 1,000 mls @ 1,000 mls/hr IV ASDIRECTED [facility] Last Admin: 08/03/18 07:41 Dose: 1,000 mls/hr Sodium Chloride (Normal Saline) 70 mls @ 3 mls/sec IV ONETIME ONE Stop: 08/03/18 08:32 Last Admin: 08/03/18 08:44 Dose: 3 mls/sec Sodium Chloride (Normal Saline) 1,000 mls @ 250 mls/hr IV ASDIRECTED [facility] Last Admin: 08/03/18 09:07 Dose: 250 mls/hr Multivitamins/Minerals 10 ml/Thiamine HCl 100 mg/ Folic Acid 1 mg/ Magnesium Sulfate 3 gm/ Sodium Chloride 1,017.2 mls @ 200 mls/hr IV ONETIME ONE Stop: 08/03/18 17:35 Last Admin: 08/03/18 13:41 Dose: 200 mls/hr Potassium Chloride 20 meq/Lidocaine HCl 2 ml/ Sodium Chloride 112 mls @ 56 mls/ hr IV Q2H JESS Stop: 08/03/18 15:59 Last Admin: 08/03/18 14:21 Dose: 56 mls/hr Iopamidol (Isovue-300 (61%)) 93 ml IV . DIRECTED PRN PRN Reason: RADIOLOGY EXAM Last Admin: 08/03/18 08:44 Dose: 93 ml Lorazepam (Ativan) 1 mg IVPUSH ONETIME ONE Stop: 08/03/18 11:06 Last Admin: 08/03/18 11:55 Dose: 1 mg Ondansetron HCl (Zofran) 4 mg IVPUSH ONETIME ONE Stop: 08/03/18 06:44 Last Admin: 08/03/18 06:57 Dose: 4 mg Ondansetron HCl (Zofran) 4 mg IVPUSH ONETIME ONE Stop: 08/03/18 08:54 Last Admin: 08/03/18 09:08 Dose: 4 mg Pantoprazole Sodium (Protonix Iv) 40 mg IV ONETIME ONE Stop: 08/03/18 12:01 Last Admin: 08/03/18 11:56 Dose: 40 mg Sodium Chloride (Saline Flush) 10 ml FLUSH ONETIME PRN PRN Reason: PER RADIOLOGY PROTOCOL Last Admin: 08/03/18 08:44 Dose: 10 ml - Exam Quality Assessment: No: Supplemental Oxygen General: Alert, Oriented, Cooperative, No Acute Distress Lungs: Normal Respiratory Effort GI/Abdominal Exam: Soft, No Distention, Guarding, Tender (right side of abdomen , moderate) Psy/Mental Status: Alert, Normal Affect - Problem List & Annotations (1) Hepatitis SNOMED Code(s): 989238710 Code(s): K75.9 - INFLAMMATORY LIVER DISEASE, UNSPECIFIED Status: Acute Current Visit: Yes (2) Abdominal pain SNOMED Code(s): 58402908 Code(s): R10.9 - UNSPECIFIED ABDOMINAL PAIN Status: Acute Current Visit: Yes Qualifiers: Abdominal location: right upper quadrant Qualified Code(s): R10.11 - Right upper quadrant pain (3) Hypokalemia SNOMED Code(s): 86165760 Code(s): E87.6 - HYPOKALEMIA Status: Acute Current Visit: Yes (4) Bariatric surgery status SNOMED Code(s): 087809663, 597935036, 501586206 Code(s): Z98.84 - BARIATRIC SURGERY STATUS Status: Chronic Current Visit : No - Problem List Review Problem List Initiated/Reviewed/Updated: Yes - My Orders Last 24 Hours: My Active Orders 08/03/18 11:08 Resuscitation Status Routine 08/03/18 11:24 Patient Status [ADT] Routine Intake and Output [RC] QSHIFT Notify Provider Vital Signs [RC] ASDIRECTED Oxygen Therapy [RC] PRN Up ad [place] [RC] ASDIRECTED VTE/DVT Education [RC] Per Unit Routine Vital Signs [RC] Q4H Acetaminophen [Tylenol] 650 mg PO Q4H PRN Acetaminophen/HYDROcodone [[place] 325-5 MG] 1 tab PO Q4H PRN Dextrose 5%-Lactated Ringers 1,000 ml IV ASDIRECTED LORazepam [Ativan] 1 mg IVPUSH Q4H PRN LORazepam [Ativan] 1 mg PO TID PRN Ondansetron [Zofran ODT] 4 mg PO Q6H PRN Ondansetron [Zofran] 4 mg IV Q6H PRN Sequential Compression Device [OM.PC] Per Unit Routine 08/03/18 11:32 HYDROmorphone [Dilaudid] 1 mg IV Q2H PRN 08/03/18 17:00 diphenhydrAMINE [Benadryl] 25 mg PO Q4H PRN 08/04/18 05:32 ACTIN (SMOOTH MUSCLE) ANTIBODY Routine ERICA W/REFLEX Routine ANCA PANEL Routine EBV ACUTE INFECTION ANTIBODIES Routine HEPATITIS PANEL (4) Routine 08/04/18 09:00 Citalopram [Celexa] 20 mg PO DAILY Cyanocobalamin (Vitamin B12) [Vitamin B12] 2,000 mcg PO DAILY Vitamin B Complex 2 each PO DAILY 08/04/18 Lunch Regular Diet [DIET] 08/05/18 05:00 CBC W/O DIFF,HEMOGRAM [HEME] Timed (1) COMPREHENSIVE METABOLIC PN,CMP [CHEM] Timed - Plan Plan:: ASSESSMENT AND PLAN - Acute hepatitis - acute onset of abdominal pain with elevation of bilirubin, AST and ALT in a hepatocellular pattern. CT scan showed diffuse fatty infiltration. Viral infection seems to be the most likely but autoimmune could be considered. She has had sick contacts with strep throat but that seems to be unlikely as a cause. She does not report any alcohol use. She does not use IV drugs and has been vaccinated against hepatitis B. No travel to countries with hepatitis A. Monospot was negative. Feeling better today and levels are trending down. -IV fluids until 5 PM then saline lock -Symptomatic management -Repeat labs in the morning -Follow-up labs for viral hepatitis, ERICA, ANCA, EBV serologies, Anti Smooth Muscle AB Hypokalemia - level has improved with supplementation. History of gastric bypass - dehydration from poor intake and diarrhea at admission but this has been improving. Diarrhea has resolved. -Advance diet, continue IV fluids for several more hours Maintenance issues - - DVT prophylaxis - mechanical - GI prophylaxis - one-time dose of IV PPI at admission - Nutrition - regular diet Disposition - I would anticipate discharge home after the hospital stay, likely tomorrow if stable overnight Primary care physician - Dr Darwin Veras M.D.
[2018-08-05] MEDS: HYDROmorphone 1 MG/ML Syringe IV PRN ×3 (00:08→12:28)
[2018-08-05] MEDS: Acetaminophen/HYDROcodone 325-5 MG Tab PO PRN ×4 (03:16→14:06)
[2018-08-05] MEDS: Ondansetron 4 MG/2 ML SDV IV PRN (03:19)
[2018-08-05] MEDS: Cyanocobalamin (Vitamin B12) 1,000 MCG Tab PO SCH (08:47)
[2018-08-05] MEDS: Vitamin B Complex Tab PO SCH (08:47)
[2018-08-05] MEDS: Citalopram 20 MG Tab PO SCH (08:47)
[2018-08-05 10:59] VITALS: BP 112/72
--- NOTE | 2018-08-05 11:51 | PCM.DCSUM1 ---
Discharge Summary - Hospital Course Brief History: Ms. Dickson is a 38-year-old woman who was admitted through the emergency department with right upper quadrant abdominal pain and elevated liver enzymes. - Discharge Data Discharge Date: 08/05/18 Discharge Disposition: Home, Self-Care 01 Condition: Stable - Discharge Diagnosis/Problem(s) (1) Abdominal pain SNOMED Code(s): 48120927 ICD Code: R10.9 - UNSPECIFIED ABDOMINAL PAIN Status: Acute Current Visit : Yes Qualifiers: Abdominal location: right upper quadrant Qualified Code(s): R10.11 - Right upper quadrant pain (2) Hepatitis SNOMED Code(s): 191169725 ICD Code: K75.9 - INFLAMMATORY LIVER DISEASE, UNSPECIFIED Status: Acute Current Visit: Yes - Patient Summary/Data Hospital Course: Mya presented to the ER with three days of progressive RUQ pain. She describes achy, twisting pain below the rib cage with some shooting pain. It was mild a few days ago but has progressively become severe. Worse with movement. No help from APAP or ibuprofen. Never had pain like this before. The pain does radiate to her back. She has had diarrhea for 3 weeks. No blood in her stool. She has been nauseated for weeks but worse the past few days. Very little to eat or drink for the past three weeks. Mild sore throat a couple weeks ago but none now. No fevers. Multiple contacts with strep throat and one who also had vomiting and diarrhea a couple weeks ago. Significant fatigue. No rash or lymphadenopathy. Work up in the ER revealed bilirubin of 1.9 and AST and ALT of [address] abd revealed diffuse fatty infiltration of the liver but no mass or abscess. No other acute findings in the abdomen. She has required two doses of pain meds and two doses of anti-emetics. She did receive fluids. She is very uncomfortable and will be admitted for symptom management and expedited work up. She continued to receive fluids after admission as well as medication for nausea and pain. Over the next 2 days of hospitalization pain improved but had not totally resolved by the time of discharge. Liver enzymes also improved with her bilirubin decreased to 1.1 on the day of discharge. Hepatocellular enzymes also improved but had not yet normalized. She was tolerating a regular diet with no significant symptoms of nausea vomiting or worsening of her pain. Labs have been drawn for further evaluation of the elevated transaminases as well as bilirubin level. Including infectious hepatitis serology, ERICA, a [employer], smooth muscle antibody. These studies have been sent to the reference lab and are not available at the time of discharge. Was felt most likely that the acute hepatitis was secondary to another viral infection. She will be off work until 10 August. Follow-up appointment will be scheduled with her primary care provider within one week, CMP will be obtained at that time. Activity will be as tolerated and she will continue regular diet. - Patient Instructions Diet: Usual Diet as Tolerated Activity: As Tolerated Other/Special Instructions: Please schedule follow-up appointment with primary care provider within one week. CMP should be obtained at the time of follow-up appointment. - Discharge Plan *PRESCRIPTION DRUG MONITORING PROGRAM REVIEWED*: Not Applicable *COPY OF PRESCRIPTION DRUG MONITORING REPORT IN PATIENT PROSPER: Not Applicable Prescriptions/Med Rec: oxyCODONE 5 mg PO Q4H PRN #12 tab PRN Reason: Pain Home Medications: Home Meds Cyanocobalamin (Vitamin B-12) [Vitamin B-12] 1,000 mcg IM ASDIRECTED 03/30/13 [ History] Cyanocobalamin (Vitamin B-12) [Vitamin B-12] 2,000 mcg PO DAILY 03/30/13 [ History] Ferrous Fumarate [Iron] 325 mg PO TID 03/30/13 [History] Multivitamin [Multivitamins] 2 each PO DAILY 03/30/13 [History] Vitamin B Complex [Vitamin B-100 Complex] 2 tab PO DAILY 03/30/13 [History] Calcium Carbonate [Calcium] 600 mg PO DAILY 08/23/13 [History] Citalopram [Citalopram HBr] 20 mg PO DAILY 06/21/17 [History] LORazepam 1 mg PO TID 06/21/17 [History] Ibuprofen [Motrin] 800 mg PO BID PRN 07/02/17 [History] oxyCODONE 5 mg PO Q4H PRN #12 tab 08/05/18 [Rx] Referrals: Maikol Way MD [Primary Care Provider] - - Discharge Summary/Plan Comment DC Time >30 min.: No - Patient Data Vitals - Most Recent: Last Vital Signs Temp 97.9 F 08/05/18 10:58 Pulse 80 08/05/18 10:58 Resp 16 08/05/18 10:58 BP 112/72 08/05/18 10:58 Pulse Ox 97 08/05/18 10:58 Weight - Most Recent: 136 lb 0.403 oz I&O - Last 24 hours: Intake & Output 08/04/18 08/05/18 08/05/18 22:59 06:59 14:59 Intake Total 980 240 440 Balance 980 240 440 Lab Results - Last 24 hrs: Laboratory Results - last 24 hr 08/05/18 08/05/18 Range/Units 05:48 05:48 WBC 3.4 L (4.5-11.0) K/uL RBC 3.08 L (3.30-5.50) M/uL Hgb 9.8 L (12.0-15.0) g/dL Hct 31.2 L (36.0-48.0) % MCV 101 H (80-98) fL MCH 32 H (27-31) pg MCHC 31 L (32-36) % Plt Count 126 L (150-400) K/uL Sodium 141 (140-148) mmol/L Potassium 4.1 (3.6-5.2) mmol/L Chloride 108 (100-108) mmol/L Carbon Dioxide 31 (21-32) mmol/L Anion Gap 1.9 L (5.0-14.0) mmol/L BUN 5 L (7-18) mg/dL Creatinine 0.8 (0.6-1.0) mg/dL Est Cr Clr Drug Dosing 71.95 mL/min Estimated GFR (MDRD) > 60 (>60) Glucose 82 (74-106) mg/dL Calcium 7.4 L (8.5-10.1) mg/dL Total Bilirubin 1.1 H (0.2-1.0) mg/dL AST 114 H (15-37) U/L ALT 131 H (12-78) U/L Alkaline Phosphatase 137 H (46-116) U/L Total Protein 4.6 L (6.4-8.2) g/dL Albumin 2.0 L (3.4-5.0) g/dL Globulin 2.6 (2.3-3.5) g/dL Albumin/Globulin Ratio 0.8 L (1.2-2.2) Med Orders - Current: Current Medications Acetaminophen (Tylenol) 650 mg PO Q4H PRN PRN Reason: Pain (Mild 1-3)/fever Hydrocodone Bitart/Acetaminophen (Bard 325-5 Mg) 1 tab PO Q4H PRN PRN Reason: Pain (moderate 4-6) Last Admin: 08/05/18 10:52 Dose: 1 tab Citalopram Hydrobromide (Celexa) 20 mg PO DAILY [facility] Last Admin: 08/05/18 08:47 Dose: 20 mg Cyanocobalamin (Vitamin B12) 2,000 mcg PO DAILY [facility] Last Admin: 08/05/18 08:47 Dose: 2,000 mcg Diphenhydramine HCl (Benadryl) 25 mg PO Q4H PRN PRN Reason: Itching Last Admin: 08/04/18 22:04 Dose: 25 mg Hydromorphone HCl (Dilaudid) 1 mg IV Q2H PRN PRN Reason: SEVERE PAIN (7-10) Last Admin: 08/05/18 05:35 Dose: 1 mg Lorazepam (Ativan) 1 mg PO TID PRN PRN Reason: Anxiety Last Admin: 08/05/18 07:53 Dose: 1 mg Lorazepam (Ativan) 1 mg IVPUSH Q4H PRN PRN Reason: Nausea/Vomiting Ondansetron HCl (Zofran Odt) 4 mg PO Q6H PRN PRN Reason: Nausea able to take PO Ondansetron HCl (Zofran) 4 mg IV Q6H PRN PRN Reason: Nausea/Vomiting Last Admin: 08/05/18 03:19 Dose: 4 mg Sodium Chloride (Saline Flush) 10 ml FLUSH ASDIRECTED PRN PRN Reason: Keep Vein Open Last Admin: 08/03/18 07:03 Dose: 10 ml Vitamin B Complex (Vitamin B Complex) 2 each PO DAILY [facility] Last Admin: 08/05/18 08:47 Dose: 2 each Discontinued Medications Hydromorphone HCl (Dilaudid) 1 mg IVPUSH ONETIME ONE Stop: 08/03/18 06:44 Last Admin: 08/03/18 06:59 Dose: 1 mg Hydromorphone HCl (Dilaudid) 1 mg IVPUSH ONETIME ONE Stop: 08/03/18 08:54 Last Admin: 08/03/18 09:09 Dose: 1 mg Hydromorphone HCl (Dilaudid) 1 mg IVPUSH ONETIME ONE Stop: 08/03/18 11:06 Last Admin: 08/03/18 11:55 Dose: 1 mg Sodium Chloride (Normal Saline) 1,000 mls @ 1,000 mls/hr IV ASDIRECTED [facility] Last Admin: 08/03/18 07:41 Dose: 1,000 mls/hr Sodium Chloride (Normal Saline) 70 mls @ 3 mls/sec IV ONETIME ONE Stop: 08/03/18 08:32 Last Admin: 08/03/18 08:44 Dose: 3 mls/sec Sodium Chloride (Normal Saline) 1,000 mls @ 250 mls/hr IV ASDIRECTED [facility] Last Admin: 08/03/18 09:07 Dose: 250 mls/hr Multivitamins/Minerals 10 ml/Thiamine HCl 100 mg/ Folic Acid 1 mg/ Magnesium Sulfate 3 gm/ Sodium Chloride 1,017.2 mls @ 200 mls/hr IV ONETIME ONE Stop: 08/03/18 17:35 Last Admin: 08/03/18 13:41 Dose: 200 mls/hr Dextrose/Lactated Ringer's (Dextrose 5%-Lactated Ringers) 1,000 mls @ 100 mls/ hr IV ASDIRECTED [facility] Stop: 08/04/18 17:00 Last Admin: 08/04/18 05:44 Dose: 100 mls/hr Potassium Chloride 20 meq/Lidocaine HCl 2 ml/ Sodium Chloride 112 mls @ 56 mls/ hr IV Q2H [facility] Stop: 08/03/18 15:59 Last Admin: 08/03/18 14:21 Dose: 56 mls/hr Iopamidol (Isovue-300 (61%)) 93 ml IV . DIRECTED PRN PRN Reason: RADIOLOGY EXAM Last Admin: 08/03/18 08:44 Dose: 93 ml Lorazepam (Ativan) 1 mg IVPUSH ONETIME ONE Stop: 08/03/18 11:06 Last Admin: 08/03/18 11:55 Dose: 1 mg Ondansetron HCl (Zofran) 4 mg IVPUSH ONETIME ONE Stop: 08/03/18 06:44 Last Admin: 08/03/18 06:57 Dose: 4 mg Ondansetron HCl (Zofran) 4 mg IVPUSH ONETIME ONE Stop: 08/03/18 08:54 Last Admin: 08/03/18 09:08 Dose: 4 mg Pantoprazole Sodium (Protonix Iv) 40 mg IV ONETIME ONE Stop: 08/03/18 12:01 Last Admin: 08/03/18 11:56 Dose: 40 mg Sodium Chloride (Saline Flush) 10 ml FLUSH ONETIME PRN PRN Reason: PER RADIOLOGY PROTOCOL Last Admin: 08/03/18 08:44 Dose: 10 ml - Exam General: Reports: Alert, Oriented, Cooperative, Mild Distress Lungs: Reports: Clear to Auscultation, Normal Respiratory Effort Cardiovascular: Reports: Regular Rate, Regular Rhythm, No Murmurs GI/Abdominal Exam: Soft, No Organomegaly, Tender. No: Distended, Guarding, Rigid, Rebound Back Exam: Reports: Normal Inspection, Full Range of Motion
[2018-08-05] MEDS: diphenhydrAMINE 25 MG Cap PO PRN (14:06)
[2018-08-06 11:17] LABS: HBSAG SCREEN Negative (Negative); HEP A AB, IGM Negative (Negative); HEP B CORE AB, IGM Negative (Negative); HEP C VIRUS AB <0.1 s/co ratio (0.0-0.9)
[2018-08-07 16:10] LABS: ANTIMYELOPEROXIDASE (MPO) ABS <9.0 U/mL (0.0-9.0); ANTIPROTEINASE 3 (PR-3) ABS <3.5 U/mL (0.0-3.5); ATYPICAL PANCA <1:20 titer (Neg:<1:20); CYTOPLASMIC (C-ANCA) <1:20 titer (Neg:<1:20); PERINUCLEAR (P-ANCA) <1:20 titer (Neg:<1:20)
[2018-08-07 19:10] LABS: EBV AB VCA, IGM <36.0 U/mL (0.0-35.9)
== END 2018-08-05 18:04 | disposition home or self-care (01) | DRG 443 ==
LOC: JP.ED 05:50 → JP.MS 11:06
PROVIDERS: ADMIT Internal Medicine; ATTEND Hospitalist
DX: B17.9 Acute viral hepatitis, unspecified (principal); K76.0 Fatty (change of) liver, not elsewhere classified; E87.6 Hypokalemia; E86.0 Dehydration; Z98.84 Bariatric surgery status; Z98.0 Intestinal bypass and anastomosis status; M54.9 Dorsalgia, unspecified; G89.29 Other chronic pain; R10.11 Right upper quadrant pain; E61.1 Iron deficiency; E53.8 Deficiency of other specified B group vitamins; F32.9 Major depressive disorder, single episode, unspecified; F41.9 Anxiety disorder, unspecified; Z87.891 Personal history of nicotine dependence; H54.7 Unspecified visual loss; Z88.1 Allergy status to other antibiotic agents; Z88.5 Allergy status to narcotic agent; Z88.0 Allergy status to penicillin; Z88.2 Allergy status to sulfonamides
CPT/HCPCS: 36415; 74177; 80053; 80074; 81001; 82150; 83520; 83605; 83690; 85025; 85027; 86038; 86140; 86255; 86256; 86308; 86663; 86664; 86665; 96361; 96365; 96366; 96375; 96376; 99285-25; A9270-GY; C9113; J1170; J2001; J2060; J2405; J3411; J3475; J3480; J3490; J7030; J7042; Q9967

== ENCOUNTER 2019-02-06 14:19 | Emergency (ER) | payer MEDICAID ==
[2019-02-06] MEDS ORDERED: Sodium Chloride 0.9% 10 ML Syringe FLUSH PRN (15:24)
[2019-02-06] MEDS ORDERED: HYDROmorphone 1 MG/ML Syringe IVPUSH ONE (15:25)
[2019-02-06] MEDS ORDERED: Ondansetron 4 MG/2 ML SDV IVPUSH ONE (15:25)
[2019-02-06] MEDS ORDERED: Sodium Chloride 0.9% 1,000 ML IV ONE (15:25)
[2019-02-06] MEDS ORDERED: Sodium Chloride 0.9% 10 ML Syringe FLUSH ONE (15:53)
[2019-02-06] MEDS ORDERED: Sodium Chloride 0.9% 100 ML IV SCH (16:00)
[2019-02-06] MEDS ORDERED: Iopamidol 612 MG/ML 100 ML Bottle IV SCH (16:00)
--- NOTE | 2019-02-06 17:01 | CRLCT ---
Indication: Upper abdominal pain. Vomiting. Technique: Multiple contiguous axial images were obtained from the lung bases through the symphysis pubis after the intravenous administration of 93 milliliters Isovue-300. Please note that all CT scans at this facility use dose modulation, iterative reconstruction, and/or weight-based dosing when appropriate to reduce radiation dose to as low as reasonably achievable. Comparison: August 03, 2018. Findings: The lung bases are clear. No infiltrate, pleural effusion, or pneumothorax is identified. The heart is normal in size. No pericardial effusions identified. Diffuse fatty infiltration of the liver is identified. Postsurgical changes of cholecystectomy are identified. The spleen, pancreas, adrenals, and kidneys are normal. Two left renal cysts are identified. No hydronephrosis is identified. No intrahepatic biliary ductal dilatation is identified. The liver is enlarged measuring 22.5 cm in cc dimension. In the pelvis, the urinary bladder is normal. A probable left ovarian cyst is identified. This measures 4.1 x 4.0 cm in size. Postsurgical changes of a gastric bypass are identified. Prominent loops of small bowel are identified within the abdomen. These all measure less than 3 cm in size. These are fluid filled. The appendix is not clearly seen. On the previous study, the appendix was clearly identified. No free air or free fluid is identified within the abdomen or pelvis. The aorta is normal in caliber. No lytic or blastic lesions of the spine are identified. Impression: Prominent loops of fluid-filled small bowel Probable left ovarian cyst. Consideration should be given to a pelvic ultrasound. The appendix is not clearly seen in the right lower quadrant. Please note that all CT scans at this facility use dose modulation, iterative reconstruction, and/or weight-based dosing when appropriate to reduce radiation dose to as low as reasonably achievable. Dictated by Abimbola Stephenson MD @ Feb 06 2019 4:47PM Signed by Dr. Abimbola Stephenson @ Feb 06 2019 5:00PM
[2019-02-06] MEDS ORDERED: Alum Hydrox/Mag Hydrox/Simeth 30 ML, Lidocaine 2% 15 ML PO ONE ×2 (17:53)
[2019-02-06 18:23] VITALS: BP 123/84; PULSE 73
--- NOTE | 2019-02-06 18:25 | EDM.PDOC ---
ED HPI GENERAL MEDICAL PROBLEM - General Chief Complaint: Abdominal Pain Stated Complaint: ABD PAIN, VOMITING, WEAKNESS Time Seen by Provider: 02/06/19 15:16 Source of Information: Reports: Patient History Limitations: Reports: No Limitations - History of Present Illness INITIAL COMMENTS - FREE TEXT/NARRATIVE: This patient complains of vomiting off and on for the past week. She complains of upper abdominal pain for the past week. The same thing happened last winter and she had to be hospitalized and never increased liver function tests. She's had a Kadeem-en-Y in the past and quite a few ER visits for abdominal pain. She takes omeprazole 20 mg once a day - Related Data Allergies Allergy/AdvReac Type Severity Reaction Status Date / Time codeine Allergy Unknown Hives Verified 02/06/19 14:34 erythromycin base Allergy Unknown Cannot Verified 02/06/19 14:34 [Erythromycin Base] Remember Penicillins Allergy Unknown Cannot Verified 02/06/19 14:34 Remember Sulfa (Sulfonamide Allergy Unknown Blisters Verified 02/06/19 14:34 Antibiotics) Home Meds: Home Meds Cyanocobalamin (Vitamin B-12) [Vitamin B-12] 1,000 mcg IM ASDIRECTED 03/30/13 [ History] Cyanocobalamin (Vitamin B-12) [Vitamin B-12] 2,000 mcg PO DAILY 03/30/13 [ History] Ferrous Fumarate [Iron] 325 mg PO TID 03/30/13 [History] Multivitamin [Multivitamins] 2 each PO DAILY 03/30/13 [History] Vitamin B Complex [Vitamin B-100 Complex] 2 tab PO DAILY 03/30/13 [History] Calcium Carbonate [Calcium] 600 mg PO DAILY 08/23/13 [History] Citalopram [Citalopram HBr] 20 mg PO DAILY 06/21/17 [History] Ibuprofen [Motrin] 800 mg PO BID PRN 07/02/17 [History] Past Medical History HEENT History: Reports: Impaired Vision Gastrointestinal History: Reports: Bowel Obstruction, Cholelithiasis, GERD Other Gastrointestinal History: chronic abdinal pain Genitourinary History: Reports: None 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: Musculoskeletal History: Reports: Back Pain, Chronic Neurological History: Reports: Concussion, Migraines Psychiatric History: Reports: ADD, Anxiety, Depression, Panic Attack Hematologic History: Reports: Anemia, B12 Deficiency, Iron Deficiency Oncologic (Cancer) History: Reports: 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) Other Oncologic History: 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 - Infectious Disease History Infectious Disease History: Reports: Chicken Pox - Past Surgical History Head Surgeries/Procedures: Reports: None HEENT Surgical History: Reports: Tonsillectomy GI Surgical History: Reports: Bariatric Procedure, Cholecystectomy, Colon, EGD, Hernia, Abdominal, Small Bowel Female Surgical History: Reports: Section, Tubal Ligation Neurological Surgical History: Reports: None Musculoskeletal Surgical History: Reports: Carpal Tunnel, 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) Other Musculoskeletal Surgeries/Procedures:: left ankle surgery Oncologic Surgical History: Reports: None Dermatological Surgical History: Reports: None Social & Family History - Family History Cardiac: Reports: Heart Failure, High Cholesterol, Hypertension Respiratory: Reports: 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) Other Respiratory Family Hisory: Emphasema Musculoskeletal: Reports: Arthritis Neurological: Reports: Alzheimers Disease Psychiatric: Reports: None Endocrine/Metabolic: Reports: Diabetes, Type I, Obesity/MBI 30+ Oncologic: Reports: Colon, Skin - Tobacco Use Smoking Status *Q: Current Every Day Smoker Years of Tobacco use: 6 Packs/Tins Daily: 1 Second Hand Smoke Exposure: No - Caffeine Use Caffeine Use: Reports: Coffee, Energy Drinks, Soda - Alcohol Use Days Per Week of Alcohol Use: 5 Number of Drinks Per Day: 2 Total Drinks Per Week: 10 Date of Last Drink: 02/05/19 Time of Last Drink: 20:00 - Recreational Drug Use Recreational Drug Use: No ED ROS GENERAL - Review of Systems Review Of Systems: ROS reveals no pertinent complaints other than HPI. ED EXAM, GI/ABD - Physical Exam Exam: See Below Exam Limited By: No Limitations General Appearance: Alert, WD/WN, Mild Distress Eyes: Bilateral: Normal Appearance Head: Atraumatic Neck: Normal Inspection Respiratory/Chest: Lungs Clear Cardiovascular: Regular Rate, Rhythm, No Murmur GI/Abdominal Exam: Normal Bowel Sounds, Tender, Other (Some guarding to the upper abdomen) Extremities: Normal Inspection Neurological: Alert, Oriented Psychiatric: Normal Affect Skin Exam: Warm, Dry Course - Vital Signs Last Recorded V/S: Last Vital Signs Temp 36.2 C 02/06/19 14:46 Pulse 77 02/06/19 16:58 Resp 18 02/06/19 14:46 BP 128/74 02/06/19 16:58 Pulse Ox 98 02/06/19 15:23 - Orders/Labs/Meds Orders: Active Orders 24 hr Category Date Time Status Iopamidol [Isovue-300 (61%)] Med 02/06/19 16:00 Active 100 ml IV . DIRECTED Sodium Chloride 0.9% [Normal Saline] 100 ml Med 02/06/19 16:00 Active IV ASDIRECTED Sodium Chloride 0.9% [Saline Flush] Med 02/06/19 15:24 Active 10 ml FLUSH ASDIRECTED PRN Saline Lock Insert [OM.PC] Urgent Oth 02/06/19 15:24 Ordered Medication Orders Sodium Chloride (Normal Saline) 100 mls @ 3 mls/sec IV ASDIRECTED JESS Last Admin: 02/06/19 16:09 Dose: 3 mls/sec Iopamidol (Isovue-300 (61%)) 100 ml IV . DIRECTED [facility] Last Admin: 02/06/19 16:08 Dose: 100 ml Sodium Chloride (Saline Flush) 10 ml FLUSH ASDIRECTED PRN PRN Reason: Keep Vein Open Last Admin: 02/06/19 16:09 Dose: 10 ml Labs: Laboratory Tests 02/06/19 02/06/19 02/06/19 Range/Units 15:33 15:33 15:33 WBC 3.3 L (4.5-11.0) K/uL RBC 4.21 (3.30-5.50) M/uL Hgb 13.6 D (12.0-15.0) g/dL Hct 40.8 (36.0-48.0) % MCV 97 (80-98) fL MCH 32 H (27-31) pg MCHC 33 (32-36) % Plt Count 239 (150-400) K/uL Neut % (Auto) 41 (36-66) % Lymph % (Auto) 45 H (24-44) % Harmon % (Auto) 11 H (2-6) % Eos % (Auto) 2 (2-4) % Baso % (Auto) 1 (0-1) % Sodium 134 L (140-148) mmol/L Potassium 3.6 (3.6-5.2) mmol/L Chloride 103 (100-108) mmol/L Carbon Dioxide 21 (21-32) mmol/L Anion Gap 13.6 (5.0-14.0) mmol/L BUN 12 D (7-18) mg/dL Creatinine 0.9 (0.6-1.0) mg/dL Est Cr Clr Drug Dosing 63.95 mL/min Estimated GFR (MDRD) > 60 (>60) Glucose 93 (74-106) mg/dL Calcium 7.7 L (8.5-10.1) mg/dL Total Bilirubin 0.7 (0.2-1.0) mg/dL AST 34 (15-37) U/L ALT 29 D (12-78) U/L Alkaline Phosphatase 74 (46-116) U/L Total Protein 6.3 L (6.4-8.2) g/dL Albumin 3.1 L (3.4-5.0) g/dL Globulin 3.2 (2.3-3.5) g/dL Albumin/Globulin Ratio 1.0 L (1.2-2.2) Amylase 15 L (25-115) U/L Lipase 164 (73-393) U/L Urine Color (YELLOW) Urine Appearance (CLEAR) Urine pH (5.0-8.0) Ur Specific [place] (1.008-1.030) Urine Protein (NEGATIVE) mg/dL Urine Glucose (UA) (NEGATIVE) mg/dL Urine Ketones (NEGATIVE) mg/dL Urine Occult Blood (NEGATIVE) Urine Nitrite (NEGATIVE) Urine Bilirubin (NEGATIVE) Urine Urobilinogen (0.2-1.0) EU/dL Ur Leukocyte Esterase (NEGATIVE) Urine RBC (0-5) Urine WBC (0-5) Ur Epithelial Cells Amorphous Sediment Urine Bacteria Urine Mucus 02/06/19 Range/Units 16:52 WBC (4.5-11.0) K/uL RBC (3.30-5.50) M/uL Hgb (12.0-15.0) g/dL Hct (36.0-48.0) % MCV (80-98) fL MCH (27-31) pg MCHC (32-36) % Plt Count (150-400) K/uL Neut % (Auto) (36-66) % Lymph % (Auto) (24-44) % Harmon % (Auto) (2-6) % Eos % (Auto) (2-4) % Baso % (Auto) (0-1) % Sodium (140-148) mmol/L Potassium (3.6-5.2) mmol/L Chloride (100-108) mmol/L Carbon Dioxide (21-32) mmol/L Anion Gap (5.0-14.0) mmol/L BUN (7-18) mg/dL Creatinine (0.6-1.0) mg/dL Est Cr Clr Drug Dosing mL/min Estimated GFR (MDRD) (>60) Glucose (74-106) mg/dL Calcium (8.5-10.1) mg/dL Total Bilirubin (0.2-1.0) mg/dL AST (15-37) U/L ALT (12-78) U/L Alkaline Phosphatase (46-116) U/L Total Protein (6.4-8.2) g/dL Albumin (3.4-5.0) g/dL Globulin (2.3-3.5) g/dL Albumin/Globulin Ratio (1.2-2.2) Amylase (25-115) U/L Lipase (73-393) U/L Urine Color Yellow (YELLOW) Urine Appearance Slightly cloudy A (CLEAR) Urine pH 5.5 (5.0-8.0) Ur Specific [place] 1.015 (1.008-1.030) Urine Protein Negative (NEGATIVE) mg/dL Urine Glucose (UA) Negative (NEGATIVE) mg/dL Urine Ketones Negative (NEGATIVE) mg/dL Urine Occult Blood Negative (NEGATIVE) Urine Nitrite Negative (NEGATIVE) Urine Bilirubin Negative (NEGATIVE) Urine Urobilinogen 0.2 (0.2-1.0) EU/dL Ur Leukocyte Esterase Negative (NEGATIVE) Urine RBC 0-5 (0-5) Urine WBC 0-5 (0-5) Ur Epithelial Cells Rare Amorphous Sediment Not seen Urine Bacteria Few Urine Mucus Not seen Meds: Medications Generic Name Dose Route Start Last Admin Trade Name Freq PRN Reason Stop Dose Admin Sodium Chloride 100 mls @ 3 mls/sec 02/06/19 16:00 02/06/19 16:09 Normal Saline IV 3 mls/sec ASDIRECTED JESS Administration Iopamidol 100 ml 02/06/19 16:00 02/06/19 16:08 Isovue-300 (61%) IV 100 ml . DIRECTED JESS Administration Sodium Chloride 10 ml 02/06/19 15:24 02/06/19 16:09 Saline Flush FLUSH 10 ml ASDIRECTED PRN Administration Keep Vein Open Discontinued Medications Generic Name Dose Route Start Last Admin Trade Name Steph PRN Reason Stop Dose Admin Al Hydroxide/Mg Hydroxide 30 0 ml 02/06/19 17:53 02/06/19 17:59 ml/ Lidocaine HCl 15 ml PO 02/06/19 17:54 45 ml ONETIME ONE Administration Hydromorphone HCl 1 mg 02/06/19 15:25 02/06/19 15:59 Dilaudid IVPUSH 02/06/19 15:26 1 mg ONETIME ONE Administration Sodium Chloride 1,000 mls @ 999 mls/hr 02/06/19 15:25 02/06/19 16:04 Normal Saline IV 02/06/19 16:25 999 mls/hr .BOLUS ONE Administration Ondansetron HCl 4 mg 02/06/19 15:25 02/06/19 15:59 Zofran IVPUSH 02/06/19 15:26 4 mg ONETIME ONE Administration Sodium Chloride 10 ml 02/06/19 15:53 02/06/19 16:06 Saline Flush FLUSH 02/06/19 15:54 10 ml ONETIME ONE Administration - Radiology Interpretation Free Text/Narrative:: Abdominal CT showed some fluid-filled loops of small bowel. There is also probably a left and ovarian cyst. - Re-Assessments/Exams Free Text/Narrative Re-Assessment/Exam: 02/06/19 18:22 An IV was established and she was given IV Dilaudid and Zofran and that seemed to help. I gave her a GI cocktail and that doesn't seem to help her. She said she doesn' t have reflux so that wouldn't help and she also says she doesn't have gastritis and so taking more omeprazole also won't help. I told her that she's had [address] and that she should try to avoid CTs is much as possible in the future at least alert doctors that she has had an excessive number of CTs and she says they know. I informed her that I did not know until after I did another CT and that this damage is her health. Also informed her of a left adnexal cyst that she'll need to have checked and possibly have an ultrasound. Departure - Departure Time of Disposition: 18:24 Disposition: Home, Self-Care 01 Condition: Fair Clinical Impression: Vomiting, Abdominal pain - Discharge Information Referrals: Maikol Way MD [Primary Care Provider] - Additional Instructions: Use Zofran as needed for nausea. You can consider increasing omeprazole to twice daily. Omeprazole does not last for 24 hours for most people. Follow-up with Dr. Chan as needed. You probably have a left ovarian cyst that may need an ultrasound and you should follow-up with your Dr. or this - My Orders Last 24 Hours: My Active Orders 02/06/19 15:24 Sodium Chloride 0.9% [Saline Flush] 10 ml FLUSH ASDIRECTED PRN Saline Lock Insert [OM.PC] Urgent 02/06/19 16:00 Iopamidol [Isovue-300 (61%)] 100 ml IV . DIRECTED Sodium Chloride 0.9% [Normal Saline] 100 ml IV ASDIRECTED - Assessment/Plan Last 24 Hours: My Active Orders 02/06/19 15:24 Sodium Chloride 0.9% [Saline Flush] 10 ml FLUSH ASDIRECTED PRN Saline Lock Insert [OM.PC] Urgent 02/06/19 16:00 Iopamidol [Isovue-300 (61%)] 100 ml IV . DIRECTED Sodium Chloride 0.9% [Normal Saline] 100 ml IV ASDIRECTED
== END 2019-02-06 18:54 | disposition home or self-care (01) ==
LOC: JP.ED 14:19
DX: R11.10 Vomiting, unspecified (principal); R10.10 Upper abdominal pain, unspecified; Z88.5 Allergy status to narcotic agent; Z88.1 Allergy status to other antibiotic agents; Z88.0 Allergy status to penicillin; Z88.2 Allergy status to sulfonamides; Z79.899 Other long term (current) drug therapy; F41.9 Anxiety disorder, unspecified; F32.9 Major depressive disorder, single episode, unspecified; K21.9 Gastro-esophageal reflux disease without esophagitis; F17.210 Nicotine dependence, cigarettes, uncomplicated
CPT/HCPCS: 36415; 74177; 80053; 81001; 82150; 83690; 85025; 96361; 96374; 96375; 99284; A9270; J1170; J2405; J7030; Q9967